=== PATIENT | male | born 1965 | race African-American/Black ===

== ENCOUNTER 2022-03-09 13:55 | Observation (INO) | payer OTHER, SELFPAY ==
[2022-03-09] VITALS (38 sets, daily range): BP systolic 136–192; BP diastolic 83–115; PULSE 57–88; RESP 12–27; TEMP 36.7–37.4; O2SAT 97–100
--- NOTE | ~2022-03-09 | US_ITS ---
EXAMINATION: US carotid duplex BI DATE: 03/10/2022 09:28 INDICATION: Dizziness TECHNIQUE: Grayscale, color Doppler, and pulsed Doppler images of the cervical carotid arteries were obtained. The degree of vessel stenosis is placed in one of the following categories: normal, <50%, 5 0-69%, >=70% but less than near-occlusion, near-occlusion, or total occlusion. Note that percent sten osis relative to normal distal artery lumen diameter is indirectly measured from velocity measurement s as described by Jaquan, et al. Radiology 2003; 229:340-346. Notes: Normal: Peak systolic velocity <125 centimeters/sec and no plaque <50%. Peak systolic velocity <125 ( EDV <40; ICA/CCA PSV ratio <2.0; used these factors only a tandem lesions or low cardiac output or co ntralateral disease) 50-69 %: PSV 125-230 (EDV 40-100; ratio 2-4) >= 70% but less than near occlusion: PSV greater than 230 (EDV > 100; ratio> 4.0) Near Occlusion: PSV that is variable; markedly narrowed lumen Occlusion: Absent flow on color/spectral Doppler and no lumen on hooper scale. COMPARISON: None. FINDINGS: RIGHT: The right common carotid artery (CCA) peak systolic velocity (PSV) is 74 cm/s. The right internal car otid artery (ICA) PSV is 69 cm/s. The right ICA end-diastolic velocity (EDV) is 31 cm/s. The right IC A/CCA PSV ratio is 0.9. The external carotid artery (ECA) PSV is 82 cm/s. There is antegrade flow in the right vertebral artery. LEFT: The left CCA PSV is 85 cm/s. The left ICA PSV is 72 cm/s. The left ICA EDV is 31 cm/s. The left ICA/C CA PSV ratio is 0.8. The ECA PSV is 77 cm/s. There is antegrade flow in the left vertebral artery. IMPRESSION: 1. Less than 50% stenosis in the right internal carotid artery by sonographic criteria. 2. Less than 50% stenosis in the left internal carotid artery by sonographic criteria. Reviewed, dictated and finalized at location A. IMPRESSION: 1. Less than 50% stenosis in the right internal carotid artery by sonographic sean gerardo. 2. Less than 50% stenosis in the left internal carotid artery by sonographic tino moore.
--- NOTE | ~2022-03-09 | CT_ITS ---
EXAMINATION: CT brain wo con DATE: 03/09/2022 14:46 INDICATION: dizziness, hx stroke . TECHNIQUE: Computed tomography (CT) of the head was performed without intravenous contrast. The mA wa s adjusted according to patient size. Iterative reconstruction technique was employed. The dose-lengt h product was 605.33 mGy-cm. COMPARISON: 09/13/2016. FINDINGS: No acute intracranial hemorrhage or extra-axial fluid collection. No hydrocephalus, mass, or herniation. No acute ischemic infarct. Unremarkable dural venous sinus attenuation. No acute osseous abnormality. Trace right mastoid effusion, otherwise the aerated spaces are clear. Left frontal encephalomalacia. Atherosclerotic intracranial calcification. IMPRESSION: No acute intracranial process. Reviewed, dictated and finalized at location K.
--- NOTE | 2022-03-09 14:17 | ED.DIZZY ---
HPI - Dizziness General Chief Complaint: Dizziness <VASU Coyle Last Filed: 03/09/22 18:58> Stated Complaint: dizzy <VASU Coyle Last Filed: 03/09/22 18:58> Time Seen by Provider: 03/09/22 14:00 <VASU Coyle Last Filed: 03/09/22 18:58> History of Present Illness HPI Narrative: Patient is a 56-year-old male with a history of old CVA on blood thinners here for evaluation of dizziness over the past 4 days. Patient states that the dizziness is episodic, and noted when he turns his head. States that it feels like a room spinning sensation. He is also having a posterior headache that he notes at nighttime when he is lying down flat and also has had intermittent chills over the past several days. Denies any neck pain or stiffness, loss of consciousness, chest pain, shortness of breath, sinus congestion or cough. Denies nausea, vomiting, diarrhea. <VASU Coyle Last Filed: 03/09/22 18:58> Related Data Home Medications: Home Medications Medication Instructions Recorded Confirmed atorvastatin 40 mg tablet 40 mg PO DAILY 03/09/22 03/09/22 clopidogrel 75 mg tablet mg 03/09/22 03/09/22 <VASU Coyle Last Filed: 03/09/22 18:58> Allergies/Adverse Reactions: Allergies Allergy/AdvReac Type Severity Reaction Status Date / Time No Known Allergies Allergy Unverified 03/09/22 14:13 <VASU Coyle Last Filed: 03/09/22 18:58> Review of Systems Review of Systems: Gen: Reports chills Eyes: Denies eye pain or visual change ENT: Denies congestion, ear pain Respiratory: Denies shortness of breath or cough CV: Denies chest pain or palpitations GI: Denies abdominal pain nausea, emesis or diarrhea : denies burning, urgency, frequency or hematuria Musculoskeletal: Denies back pain or muscle pain Neuro: Reports dizziness. Denies numbness, tingling, weakness or focal weakness Skin: Denies rash Except as documented, all other systems reviewed and negative <Janie Lopez PA-C - Last Filed: 03/09/22 18:58> Exam Narrative: APPEARANCE: Well appearing, no pain in distress, well-nourished. Head: Normocephalic and atraumatic. EYES: Fatigable, horizontal nystagmus noted with EOMs. PERRLA, conjunctivae clear NOSE: No nasal drainage EARS: cerumen obscuring TMs on left, R TM nl in appearance THROAT: Oropharynx is clear. Mucous membranes are moist. NECK: Supple. No adenopathy, no masses. RESPIRATORY: Airway patent, respirations nonlabored. Clear to auscultation bilaterally, no rales, rhonchi, wheezing. CARDIOVASCULAR: Regular rate and rhythm without murmurs, rubs, or gallops. ABDOMINAL: Normoactive bowel sounds. Soft, nontender, nondistended. No rebound tenderness or guarding. MUSCULOSKELETAL: Extremities are warm and well-perfused. Moves all extremities well. No edema. NEURO: No skew deviation. Cranial nerves II through XII intact. Normal speech. Finger to nose normal. SKIN: Skin is warm and dry. No rashes. PSYCHIATRIC: Normal affect/mood. 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/PA Physician Supervision For this patient encounter, I reviewed the AUTOMOTIVE GENERAL SALES MANAGER or PA documentation, treatment plan, and medical decision making <Rusty Greenwood MD - Last Filed: 03/09/22 20:06> Vital Signs Vital signs: Vital Signs Temperature 98.6 F 03/09/22 13:57 Pulse Rate 70 03/09/22 13:57 Respiratory Rate 16 03/09/22 13:57 Blood Pressure 143/89 H 03/09/22 13:57 Pulse Oximetry 100 03/09/22 13:57 Oxygen Delivery Room Air 03/09/22 13:57 Temperature 99.4 F 03/09/22 14:02 Pulse Rate 75 03/09/22 19:30 Respiratory Rate 22 H 03/09/22 19:30 Blood Pressure 156/98 H 03/09/22 17:58 Pulse Oximetry 99 03/09/22 19:30 Oxygen Delivery Room Air 03/09/22 14:02 <Janie Lopez PA-C - Last Filed: 03/09/22 18:58> Vital Signs Temperatur
[2022-03-09 14:42] LABS: Basophils Percent Auto 0.5 % (0.2-1.2); Eosinophils Absolute Auto 0.2 K/mm3 (0-0.3); Eosinophils Percent Auto 2.4 % (0-4.4); Hematocrit 41.8 % (42.0-52.0); Hemoglobin 14.5 g/dL (14.0-18.0); Immature Granulocyte Absolute 0.03 K/mm3 (0.00-0.031); Immature Granulocyte Percent A 0.5 % (0-0.5); Lymphocytes Absolute Auto 1.01 K/mm3 (0.9-3.2); Lymphocytes Percent Auto 16.3 % (18.3-44.2); Mean Corpuscular HGB Conc 34.7 g/dl (32-36); Mean Corpuscular Hemoglobin 30.9 pg (26-34); Mean Corpuscular Volume 89.1 fl (80-100); Mean Platelet Volume 9.2 fl (7.4-10.4); Monocytes Absolute Auto 0.8 K/mm3 (0.1-0.6); Monocytes Percent Auto 12.9 % (2.6-8.5); Neutrophils Absolute Auto 4.2 K/mm3 (1.3-6.7); Neutrophils Percent Auto 67.4 % (45.5-73.1); Platelet Count Result 236 k/mm3 (150-375); Red Blood Count 4.69 M/mm3 (4.6-6.20); White Blood Count 6.2 K/mm3 (4.5-10.0)
[2022-03-09 14:56] LABS: Alanine Aminotransferase 23 U/L (6-50); Albumin Level 4.2 g/dL (3.5-5.1); Alkaline Phosphatase 104 U/L (38-126); Anion Gap 11 mmol/L (8-16); Aspartate Amino Transferase 30 U/L (17-59); Bilirubin,Total 0.8 mg/dL (0.2-1.3); Blood Urea Nitrogen 9 mg/dL (9-20); Calcium 8.7 mg/dL (8.4-10.2); Carbon Dioxide 26 mmol/L (22-30); Chloride 100 mmol/L (98-107); Estimated CRCL calculation 113 ml/min; Estimated Glomerular Filt Rate > 60; Glucose 161 mg/dL (65-110); Potassium 2.8 mmol/L (3.4-5.0); Sodium 137 mmol/L (137-145)
--- NOTE | 2022-03-09 14:56 | ECG_ITS ---
Measurements Intervals [place] Rate: 64 P: 49 [place]: 145 QRS: 29 QRSD: 117 T: 5 QT: 405 QTc: 419 Interpretive Statements SINUS RHYTHM INTRAVENTRICULAR CONDUCTION DELAY BORDERLINE ST-T WAVE ABNORMALITY- INFERIOR LEADS BASELINE ARTIFACT- I, II, AVR, V1-V5 BORDERLINE ECG Electronically Signed On 03-09-2022 15:12:35 CDT by Omar Rowe D.O.
[2022-03-09 15:15] LABS: Influenza A QL RT-PCR Negative (Negative); Influenza B QL RT-PCR Negative (Negative); SARS-CoV-2 RNA PCR Negative
[2022-03-09] MEDS: KCL 20 MEQ/SW 100 ML 100 ML 50 MEQ IVPB (15:47)
[2022-03-09 15:56] LABS: Magnesium 1.8 mg/dL (1.6-2.3)
[2022-03-09] MEDS: SODIUM CHLORIDE 0.9% IV 500 ML IV CONT (17:03)
[2022-03-09] MEDS: MECLIZINE HCL 25 MG TABLET PO (17:17)
[2022-03-09] MEDS: POTASSIUM CHLORIDE 20 MEQ PACKET (FOR LIQUID) PO (17:31)
--- NOTE | 2022-03-09 19:55 | PM.IMHP ---
H&P: HPI History of Present Illness Date/Time: 03/09/221954 Chief Complaint: Dizziness Narrative: Patient stated that he has been getting dizzy and slight headaches. Patient stated that his headache lasts about 2-3 minutes and goes away. However he did state that his back of his neck and between his shoulder blades did hurt as well. He stated this all started about Tuesday when he started really feel weak and tired. He thought it was from the he is fully rested on Tuesday. Tuesday he felt worse and today he felt the same which made him come in to see someone about his symptoms. Patient stated he has been eating and drinking okay and in fact he stated that he has been drinking a lot of water and taking ibuprofen for the headache. He has not been replacing the electrolytes. 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 He did say the meclizine helped the dizziness and he currently does not have any dizziness at this time. He denies any chest pain, shortness of breath, visual changes, hearing changes, sweats, fevers, chills, syncope, dizziness. He did state that he does get lightheaded at times however it does not really last long. In the ER potassium was noted to be 2.8 patient was replaced. Patient was also given meclizine for dizziness and states that that has really been helping. Patient is being admitted to the hospitalist service under observation Review of Systems Review of Systems: All systems reviewed & are unremarkable except as noted in HPI and below PMFSH Past Medical History Medical History CVA (cerebral vascular accident) Hyperlipidemia Family History Family History (Updated 03/09/22 @ 21:12 by SKYLAR Phillips) Father Heart disease Hypertension Mother Lung cancer Social History Social History (Updated 03/09/22 @ 21:14 by SKYLAR Phillips) Social History: Patient lives at home with his Gifty who will be his surrogate. 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 Gender identity (if verbalized by the patient): Male Sexual Orientation (if Verbalized by the Patient): Straight or Heterosexual Spiritual care concerns: No Agree to blood products: Yes Meds Home Medications and Allergies Home Medications Medication Instructions Recorded Confirmed Type atorvastatin 40 mg tablet 40 mg PO DAILY 03/09/22 03/09/22 History clopidogrel 75 mg tablet 75 mg PO DAILY 03/09/22 03/09/22 History Allergies Allergy/AdvReac Type Severity Reaction Status Date / Time No Known Allergies Allergy Unverified 03/09/22 14:13 Vital Signs Vital Signs - 24 hr 03/09/22 13:57 03/09/22 14:02 03/09/22 15:13 Temperature 98.6 F 99.4 F Pulse Rate 70 74 68 Respiratory Rate 16 27 H 19 Blood Pressure 143/89 H 154/97 H 158/98 H Pulse Oximetry 100 100 97 Oxygen Delivery Room Air Room Air 03/09/22 17:03 03/09/22 17:40 03/09/22 17:55 Temperature Pulse Rate 61 75 87 Respiratory Rate 16 16 Blood Pressure 150/101 H 141/93 H 147/96 H Pulse Oximetry 100 100 Oxygen Delivery 03/09/22 17:55 03/09/22 17:57 Temperature Pulse Rate 88 72 Respiratory Rate Blood Pressure 153/96 H 156/98 H Pulse Oximetry Oxygen Delivery Exam Const: General: cooperative, no acute distress, well developed, alert and awake Nutritional Appearance: well nourished Orientation/consciousness: patient oriented x3 Limitations: no limitations HENMT: Ramona
--- NOTE | 2022-03-09 21:15 | ADMGEN ---
This patient, Familia Newman, was admitted to [facility] Surg Room 312-01. Patient/family oriented to hospital policies and general routines including ID bracelet, bed and alarms, visiting hours, pain management, procedures, bathroom and other care routines, personal items, smoking policy, room service/diet, and visiting hours. Information on how to activate the Rapid Response Team has been discussed. Patient/Family are encouraged to report perceived risks to care and to ask questions if they do not understand what they are told or what they should do.
[2022-03-09 21:42] LABS: Potassium 2.9 mmol/L (3.4-5.0)
[2022-03-10] VITALS: PULSE 69
[2022-03-10 04:00] VITALS: PULSE 71
[2022-03-10] MEDS: ACETAMINOPHEN 500 MG TABLET 1000 MG PO (04:26)
[2022-03-10 05:59] LABS: Basophils Percent Auto 0.3 % (0.2-1.2); Eosinophils Percent Auto 0.2 % (0-4.4); Hematocrit 37.6 % (42.0-52.0); Hemoglobin 13.2 g/dL (14.0-18.0); Immature Granulocyte Absolute 0.02 K/mm3 (0.00-0.031); Immature Granulocyte Percent A 0.3 % (0-0.5); Lymphocytes Absolute Auto 1.76 K/mm3 (0.9-3.2); Lymphocytes Percent Auto 30.4 % (18.3-44.2); Mean Corpuscular HGB Conc 35.1 g/dl (32-36); Mean Corpuscular Hemoglobin 31.2 pg (26-34); Mean Corpuscular Volume 88.9 fl (80-100); Mean Platelet Volume 9.3 fl (7.4-10.4); Monocytes Absolute Auto 0.9 K/mm3 (0.1-0.6); Neutrophils Absolute Auto 3.1 K/mm3 (1.3-6.7); Neutrophils Percent Auto 53.8 % (45.5-73.1); Platelet Count Result 231 k/mm3 (150-375); Red Blood Count 4.23 M/mm3 (4.6-6.20); Red Cell Distribution Width 13.1 % (11.5-14.5); White Blood Count 5.8 K/mm3 (4.5-10.0)
[2022-03-10 06:00] VITALS: BP 134/81; PULSE 66; RESP 16; TEMP 36.1; O2SAT 98
[2022-03-10 06:19] LABS: Alanine Aminotransferase 25 U/L (6-50); Albumin Level 3.4 g/dL (3.5-5.1); Alkaline Phosphatase 81 U/L (38-126); Anion Gap 9 mmol/L (8-16); Aspartate Amino Transferase 34 U/L (17-59); Bilirubin,Total 0.5 mg/dL (0.2-1.3); Blood Urea Nitrogen 8 mg/dL (9-20); Calcium 8.7 mg/dL (8.4-10.2); Carbon Dioxide 25 mmol/L (22-30); Chloride 100 mmol/L (98-107); Estimated CRCL calculation 113 ml/min; Estimated Glomerular Filt Rate > 60; Glucose 150 mg/dL (65-110); Magnesium 1.8 mg/dL (1.6-2.3); Potassium 2.7 mmol/L (3.4-5.0); Sodium 134 mmol/L (137-145)
[2022-03-10 08:30] VITALS: PULSE 77
[2022-03-10] MEDS: CLOPIDOGREL BISULFATE 75 MG TABLET PO (08:46)
[2022-03-10] MEDS: ATORVASTATIN 40 MG TABLET PO (08:46)
[2022-03-10] MEDS: POTASSIUM CHLORIDE INJ 40 MEQ in SODIUM CHLORIDE 0.9% IV 500 ML 130 MEQ IVPB (08:47)
[2022-03-10] MEDS: POTASSIUM CHLORIDE 20 MEQ TABLET 40 MEQ PO (08:47)
[2022-03-10 12:00] VITALS: PULSE 76
--- NOTE | 2022-03-10 13:30 | PM.DS ---
DS: Admitting Diagnosis Discharge Date 03/10/22 13:30 Admitting Diagnosis Hypokalemia/BPPV DS: Discharge Diagnosis Discharge Diagnosis (1) Benign paroxysmal positional vertigo: Code(s): H81.10 - Benign paroxysmal vertigo, unspecified ear Status: Acute Assessment and Plan: Patient reports room spinning upon arrival Carotid Dopplers <50% stenosis bilaterally Head CT shows no intracranial process Meclizine ordered PT and OT Will have patient follow up outpatient with ENT (2) Hypokalemia: Code(s): E87.6 - Hypokalemia Status: Acute Assessment and Plan: Potassium upon arrival was 2.7 replacement given PO and IV 40meg Awaiting recheck Supplement as indicated Trend labs (3) Hyperlipidemia: Code(s): E78.5 - Hyperlipidemia, unspecified Status: Acute Assessment and Plan: Continue home atorvastatin Plan Case was reviewed with Dr. Benitez, who agreed with plan and recommended to give the patient 60 meq PO and allow patient to be DC'd with follow up DS: Summary Hospital Course Hospital Course: patient is a 56-year-old male with a past medical history of CVA and hyperlipidemia who presented the ED with complaints of dizziness. 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 Patient stated that as he has been sweating he has been drinking a lot more water. Upon arrival to the ED patient was noted to have a potassium of 2.8. Patient was given IV and p.o. 20 meq recheck this morning did show the patient was at 2.7. Patient was given p.o. 40 mg and IV 40 mg of potassium. Patient feels fine and is denying any dizziness, nausea, vomiting, diarrhea, constipation, weakness, fatigue, chest pain, shortness of breath. He has been up moving around, and says that he feels great. He is ready to go. Educated that patient about the next steps with getting his labs checked in 3 day and to follow up with primary care. Repeat potassium came back at 3.0. 60 meq has been replaced. Educated about eating a banana. He denies any further complaints and is able to be discharged at this time. Time spent discussing smoking cessation with patient: 3 to 10 minutes Status at Discharge Functional status at discharge: independent ambulation Overall status at discharge: patient is progressing back to baseline Time Spent with Patient Time attestation: Total time spent providing and/or coordinating discharge services: 32 minutes Time spent: Greater than 30 minutes Specific discharge activities: Diagnostic testing, chart review, developing a treatment plan, education, care coordination documentation, physical exam, result review Exam Const: General: cooperative, healthy appearing, no acute distress, well developed, alert and awake Nutritional Appearance: well nourished Orientation/consciousness: patient oriented x3 Limitations: no limitations HENMT: Head: normal to inspection Ears: hearing grossly normal bilaterally General nose exam: Normal external nose present Mouth: Yes Normal oral and palatal mucosa present, Yes lip normal and Yes tongue normal Teeth and gingiva: abnormal tooth and associated gingiva and poor dentition Eyes: General: appearance normal, both eyes and all related structures Neck: Neck: normal visual inspection, full ROM, trachea midline and supple Chest: Chest palpation & inspection: normal inspection of the chest Resp: Effort & Inspection: normal respiratory effort and able to speak in complete sentences Auscultation: clear to auscultation bilaterally Cardio: Jugular venous distension: no JVD Rate: regular rate Rhythm: regular rhythm Heart sounds: S1 normal heart sound present and S2 normal heart sound present Peripheral pulses: Peripheral pulses 2+ throughout GI: Inspection: normal to inspection Auscultation: normal bowel sounds Skin: General skin exam: normal color and n
[2022-03-10] MEDS: POTASSIUM CHLORIDE 20 MEQ TABLET 60 MEQ PO (14:41)
--- NOTE | 2022-03-10 15:29 | PCPTNOTE ---
Attempted PT evaluation, per patient symptoms have resolved and he has been independent in room. Hospitalist contacted and agreed to DC or PT orders.
== END 2022-03-10 15:29 | disposition home or self-care (01) ==
LOC: ANHED 15:24 → ANH3MEDSUR 18:47
PROVIDERS: Physician Assistant; Admitting Provider Family Medicine; Emergency Provider Emergency Medicine; PCP Internal Medicine Gastroenterology; Visit Provider Nurse Practitioner
DX: H81.10 Benign paroxysmal vertigo, unspecified ear (principal); E87.6 Hypokalemia; E78.5 Hyperlipidemia, unspecified; Z79.02 Long term (current) use of antithrombotics/antiplatelets; Z20.822 Contact with and (suspected) exposure to COVID-19; Z86.73 Personal history of transient ischemic attack (TIA), and cerebral infarction without residual deficits; F12.90 Cannabis use, unspecified, uncomplicated
CPT/HCPCS: 36415; 70450; 80053; 83735; 84100; 84132; 85025; 87502; 93005; 93880; 96365; 96366; 99285; A9270; C9803; G0378; G0379; J3480; J7040; U0003; U0005

== ENCOUNTER 2022-03-13 09:57 | Outpatient (CLI) | payer OTHER, SELFPAY ==
[2022-03-13 10:22] LABS: Alanine Aminotransferase 39 U/L (6-50); Albumin Level 3.9 g/dL (3.5-5.1); Alkaline Phosphatase 89 U/L (38-126); Anion Gap 8 mmol/L (8-16); Aspartate Amino Transferase 41 U/L (17-59); Bilirubin,Total 0.4 mg/dL (0.2-1.3); Blood Urea Nitrogen 11 mg/dL (9-20); Calcium 9.1 mg/dL (8.4-10.2); Carbon Dioxide 29 mmol/L (22-30); Chloride 103 mmol/L (98-107); Estimated Glomerular Filt Rate > 60; Glucose 108 mg/dL (65-110); Potassium 3.6 mmol/L (3.4-5.0); Sodium 140 mmol/L (137-145)
== END 2022-03-13 09:58 | disposition home or self-care (01) ==
LOC: ANHLAB 09:58
PROVIDERS: PCP Internal Medicine Gastroenterology; Visit Provider Nurse Practitioner
DX: E87.6 Hypokalemia (principal)
CPT/HCPCS: 36415; 80053

== ENCOUNTER 2023-10-15 09:16 | Emergency (ER) | payer OTHER, SELFPAY ==
--- NOTE | ~2023-10-15 | XR_ITS ---
EXAMINATION: XR shoulder LT min 2V DATE: 10/15/2023 09:51 INDICATION: Left shoulder pain. TECHNIQUE: 4 views of left shoulder were obtained. COMPARISON: None. FINDINGS: Bone alignment is normal. No fracture. Glenohumeral joint is normal. There is moderate acro mioclavicular joint osteoarthritis. An electronic implant overlies left chest. IMPRESSION: 1. Moderate acromioclavicular joint osteoarthritis. Reviewed, dictated and finalized at location A. ND MATE
[2023-10-15 09:17] VITALS: BP 142/82; PULSE 79; RESP 17; TEMP 36.7; O2SAT 100
--- NOTE | 2023-10-15 09:28 | ED.UPPEXIN ---
HPI - Extremity Injury (Upper) General Chief Complaint: Extremity Injury, Upper Stated Complaint: left shoulder Time Seen by Provider: 10/15/23 09:21 History of Present Illness HPI narrative: 57 year old male presents to the emergency department for left shoulder pain for the past few days. 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 States he has developed left shoulder pain that is worse with movement. He took ibuprofen last night without improvement. He denies numbness or tingling, radiating pain, chest pain or shortness of breath, back pain, neck pain. Related Data Home Medications Medication Instructions Recorded Confirmed atorvastatin 40 mg tablet 40 mg PO DAILY 03/09/22 03/09/22 clopidogrel 75 mg tablet 75 mg PO DAILY 03/09/22 03/09/22 Allergies Allergy/AdvReac Type Severity Reaction Status Date / Time No Known Allergies Allergy Unverified 03/09/22 14:13 Review of Systems Review of Systems: CONSTITUTIONAL: Denies fever, chills, or sweats. EYES: Denies visual changes, redness, or discharge. ENT: Denies rhinorrhea, congestion, sore throat, or otalgia. CARDIOVASCULAR: Denies chest pain, palpitations, or edema. RESPIRATORY: Denies cough or dyspnea. GASTROINTESTINAL: Denies abdominal pain, nausea, vomiting, or diarrhea. GENITOURINARY: Denies dysuria or hematuria. SKIN: Denies rash or itching. MUSCULOSKELETAL: See HPI NEUROLOGIC: Denies headache, numbness, or weakness. PSYCHIATRIC: Denies anxiety or depression. [facility] Past Medical History Medical History CVA (cerebral vascular accident) Hyperlipidemia Family History Family History Father Heart disease Hypertension Mother Lung cancer Social History Social History Social History: Patient lives at home with his Gifty who will be his surrogate. 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 Patient resting comfortably in exam bed. He is pleasant and conversational. HEAD: Normocephalic, atraumatic. NECK: Supple. No midline cervical spinous tenderness, step-offs or deformities. CHEST: Clear to auscultation. No respiratory distress. HEART: Regular rate and rhythm. No murmur heard. Normal peripheral pulses. ABDOMEN: Soft, nontender, nondistended, normal active bowel sounds. EXTREMITIES: L shoulder with generalized tenderness to the GH joint and to the trapezius. No warmth or erythema over the shoulder. Limited active anterior flexion, abduction and internal rotation secondary to pain. Unable to perform empty can test, neer test and lift-off test secondary to pain. Full passive range of motion. Sensation intact throughout. Elbow flexion, extension tax compliance representative strength 5/5. Radial pulse 2 +. SKIN: Warm, dry, no rash. NEURO: No focal deficits. Alert and oriented x3 Course Vital Signs Vital signs: Vital Signs Temperature 98.0 F 10/15/23 09:17 Pulse Rate 79 10/15/23 09:17 Respiratory Rate 17 10/15/23 09:17 Blood Pressure 142/82 H 10/15/23
[2023-10-15] MEDS: LIDOCAINE 5% PATCH 1 PATCH TRANSDERM (09:42)
[2023-10-15] MEDS: CYCLOBENZAPRINE HCL 10 MG TABLET PO (09:42)
[2023-10-15] MEDS: KETOROLAC 30 MG/ML VIAL (*BKC) IV PUSH (09:50)
[2023-10-15] MEDS: KETOROLAC 30 MG/ML VIAL (*BKC) IM (09:51)
== END 2023-10-15 10:28 | disposition home or self-care (01) ==
PROVIDERS: Emergency Provider Physician Assistant; PCP Internal Medicine Gastroenterology
DX: S46.912A Strain of unspecified muscle, fascia and tendon at shoulder and upper arm level, left arm, initial encounter (principal); E78.5 Hyperlipidemia, unspecified; Z86.73 Personal history of transient ischemic attack (TIA), and cerebral infarction without residual deficits; X50.0XXA Overexertion from strenuous movement or load, initial encounter
CPT/HCPCS: 73030; 96372; 96374; 99284; A4565; A9270; J1885

== ENCOUNTER 2025-01-23 07:59 | Emergency (ER) | payer OTHER, SELFPAY ==
[2025-01-23] VITALS (11 sets, daily range): BP systolic 115–144; BP diastolic 75–97; PULSE 66–90; RESP 15–24; TEMP 36.6; O2SAT 95–100
--- NOTE | ~2025-01-23 | XR_ITS ---
EXAMINATION: XR chest 2V 01/23/2025 08:57 INDICATION: Syncope PROCEDURE: 2 view chest COMPARISON: 09/13/2016 FINDINGS: The lungs are clear. The cardiomediastinal silhouette is within normal limits. There are no pleural effusions. There is no pneumothorax suspected. IMPRESSION: 1: NO ACUTE CARDIOPULMONARY DISEASE. Reviewed, dictated and finalized at location []
--- NOTE | ~2025-01-23 | CT_ITS ---
EXAMINATION: CT brain wo con DATE: 01/23/2025 08:45 INDICATION: Possible seizure TECHNIQUE: Computed tomography (CT) of the head was performed without intravenous contrast. Sagittal and coronal reconstructions were performed. The mA was adjusted according to patient size. Iterative reconstruction technique was employed. The dose-length product was 605.33 mGy-cm. COMPARISON: head CT dated 03/09/2022 FINDINGS: Again seen is a small to moderate-sized region of encephalomalacia consistent with chronic infarct in the left frontal lobe. No acute intracranial hemorrhage, acute infarction or abnormal extra axial fl uid collection. Ventricles are normal and symmetric. No mass/mass effect. Large mucous retention cyst in the left maxillary sinus. The orbits and mastoid air cells are normal. IMPRESSION: 1. Chronic left frontal lobe infarct. No acute intracranial process. Reviewed, dictated and finalized at location A.
--- NOTE | 2025-01-23 08:06 | ECG_ITS ---
Test Date: 2025-01-23 08:27:28 Measurements Intervals [place] Rate: 71 P: 64 [place]: 143 QRS: 20 QRSD: 101 T: 46 QT: 423 QTc: 460 Interpretive Statements SINUS RHYTHM INCOMPLETE RIGHT BUNDLE BRANCH BLOCK BASELINE ARTIFACT- III, AVF BORDERLINE ECG No previous ECG available for comparison Electronically Signed On 01-23-2025 08:29:09 CDT by Omar Rowe D.O.
--- OUTSIDE RECORDS SUMMARY | 2025-01-23 08:08 | XMS_ITS | Clinical Summary ---
Author Organization [facility] Address [address] [place] [address] Care Team Providers Care Hoe Runner Name Role Phone Kay Alfred MD Unavailable [phone] Kaycee Trimble MD Primary Care Provider [phone] Source Comments [facility],non-owned Affiliates and Associated Physician Practices is amultiple site organization consisting of ambulatory clinics and hospital sitesin [place], [place], [place] and [place]. This disclosure is being madepursuant to the Care Everywhere program and may not contain all information available regarding this patient. Last updated 18.[facility] [employer] Allergies No known active allergies Medications * Be aware that medications may not be up to date on this document. Alwaysverify current medications with the patient. fluticasone propionate (FLONASE) 50 MCG/ACT nasal spray SHAKE LQ AND U 2 SPRAYS IEN QD 1 9 Active HYDROcodone-soila taminophen (NORCO) 5-325 MG tablet Take 1 tablet by mouth every 6 hours as needed for Pain 25 tablet 9 Active Additional Information Patient not taking.Reported on 06/02/2022 tadalafil (Cialis) 20 MG tablet Cialis 20 mg tablet TAKE 1 TABLET BY MOUTH EVERY DAY Active hydrOXYzine hcl (ATARAX) 25 MG tablet hydroxyzine HCl 25 mg tablet Active oxybutynin (DITROPAN) 5 MG tablet oxybutynin chloride 5 mg tablet Active predniSONE (DELTASONE) 10 MG tablet prednisone 10 mg tablet Active tamsulosin (FLOMAX) 0.4 MG capsule tamsulosin 0.4 mg capsule Active vitamin D, ergocalciferol, (DRISDOL) 1.25 MG (80461 UT) capsule 0 Active atorvastatin (LIPITOR) 40 MG tablet TAKE 1 TABLET BY MOUTH EVERY NIGHT 90 tablet 3 0 Active clopidogrel (PLAVIX) 75 MG tablet TAKE 1 TABLET BY MOUTH DAILY 90 tablet 3 0 Active Active Problems Problem Noted Date Diagnosed Date Radiculopathy of cervical region 09/15/2017 Aphasia 09/17/2016 Cerebral infarction 09/16/2016 Overview (11/14/2017): Cryptogenic. 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 Gender Identity Not on file Sexual Orientation Not on file Last Filed Vital Signs Vital Sign Reading Time Taken Comments Blood Pressure 155/93 06/15/2024 12:38 PM CDT Pulse 68 06/15/2024 12:38 PM CDT Temperature 36.8 C (98.2 F) 06/15/2024 12:38 PM CDT Respiratory Rate 18 06/15/2023 1:23 PM CDT Oxygen Saturation 98% 06/15/2024 12:38 PM CDT Inhaled Oxygen Concentration - - Weight 101.6 kg (224 lb) 06/15/2024 12:38 PM CDT Height 182.9 cm (6') 06/15/2024 12:38 PM CDT Body Mass Index 30.38 06/15/2024 12:38 PM CDT Plan of Treatment Upcoming Encounters Date Type Department Care Team (Late st Contact Info) Description 06/14/2025 1:00 PM CDT Procedure visit [facility] - Urology [address] [place] [address] Marlon Byrd MD [address] [place] [address] Health Maintenance Due Date Last Done Comments COLON MONITORING 1966 COLONOSCOPY - COLON CA SCREENING 1966 CT COLONOGRAPHY - COLON CA SCREENING 1966 FIT - COLON CA SCREENING 1966 FLEX SIG - COLON CA SCREENING 1966 HEPATITIS C SCREENING 10/23/1984 DTAP/TDAP/TD VACCINES (1 - Tdap) 1985 HEPATITIS B VACCINE (1 of 3 - 19+ 3-dose series) 1985 PNEUMOCOCCAL VACCINE 50+ (1 of 1 - PCV) 2016 ZOSTER VACCINE (1 of 2) 2016 COVID-19 VACCINE ( - 2023-2 5 season) 2024 DEPRESSION SCREENING 08/15/2024 INFLUENZA VACCINE (Season Ended) 2025 COLOGUARD (AGES 45-75) - COL ON CA SCREENING 05/14/2027 05/14/2024 Colorectal Cancer Screening 05/14/2027 HIV SCREENING Completed 09/16/2016 HIB VACCINE Aged Out No longer eligi ble based on patient's age to complete this topic HPV VACCINE Aged Out No longer eligi ble based on patient's age to complete this topic MENINGOCOCCAL (Group B) VACC INE SHARED DECISION-MAKING Aged Out No longer eligibl e based on patient's age to complete this topic MENINGOCOCCAL GROUPS A/C/Y/W VACCINE Aged Out No longer eligible b ased on patient's age to complete this topic Medical Devices Implanted Type Area Manufacturing Quality Technician Device Identifier Shelf Expiration Date Model / Serial / Lot Stent Uret 6fr 28cm Pgtl Crv Tpr Tip Implanted:Qty: 1 on 08/29/2018 by Marlon Byrd MD at [facility] Right: [employer]reter Black[employer] Scimed 02/26/2021 [id number] / / [id number] Procedures Procedure Name Priority Date/Time Associated Diagnosis Comments HIV-1 HIV-2 ANTIGEN/ANTIBODY Routine 09/16/2016 2:50 PM MULTI PUNCH OPERATOR from Last 3 Months or Most Recently Relevant to Health Maintenance Results * HIV-1 HIV-2 ANTIGEN/ANTIBODY (09/16/2016 2:50 PM MULTI PUNCH OPERATOR) HIV Antigen/Antibod y 1 & 2 Non-reacti ve Non-react miriam [facility] Comment: Neither HIV-1 p24 Antigen nor HIV-1/HIV-2 Antibodies are detected. Blood specimen (specimen) BLOOD SPECIMEN / Unknown 09/16/2016 2:50 PM MULTI PUNCH OPERATOR 09/16/2016 3:14 PM MULTI PUNCH OPERATOR us Dc Snow MD LAB - HEMATOLOGY ORDERABLES Marija richard Result [address] [phone] from Last 3 Months or Most Recently Relevant to Health Maintenance Insurance [facility] Serious [place] [facility] Advance Directives * Full Code (Latest Code Status on File) Date Activated Date Inactivated Comments 08/29/2018 11:45 AM 08/29/2018 7:14 PM Care Teams Hoe Runner Relationship Specialty Start Date End Date Kaycee Trimble MD [address] [place] [address] PCP - General 01/29/19 Kay Alfred MD Neurologist Neurology 12/24/17
--- OUTSIDE RECORDS SUMMARY | 2025-01-23 08:08 | XMS_ITS | Data Portability ---
Author Organization [place] [facility] [employer], Main Office Address [address] [place] [address] Assessment Encounter Date Assessment Date Assessment LastModified by Organization Details LastModified Time 11/15/2023 11/15/2023 48-year-old patient presents today with left shoulder pain after moving boxes 3 weeks ago. He states he was fine afterwards but he woke up in the middle night in extreme pain. The next day he was still extremely painful so he presented to the emergency room where x-rays were taken. He was told he did not have a fracture in given lidocaine patches and a muscle relaxant. Today he states the shoulder is feeling better but he is still experiencing pain with certain movements and having pain at night that keeps him up. Review of systems per patient questionnaire Imaging: X-rays reviewed show no acute bony abnormality, no fracture. Preserved joint spaces throughout. Physical exam: Pain with palpitation around posterior shoulder. Range of motion 130/40/back pocket. 5/5 rotator cuff strength. Positive jobes, neer, esteban. Sensation intact. We will start with a course of physical therapy to help stretch and strengthen his shoulder. He states he is unable to take anti-inflammator y so he can try Tylenol and topical creams. We discussed the risks and benefits of a cortisone injection as he is having pain that keeps him up at night. He elected to proceed with the injection today. We will see him back in 4-6 weeks to check his progress. [email or web address] Not available 11/15/2023 20:51:08 Plan of Treatment Reminders Order Date Submit Date Provider Last Modified By Organization Details Last Modified Time Details Appointments None recorded. Lab None recorded. Referral physical therapist referral - Please contact pt to schedule L shoulder. Thanks 2023 024 [facility], [address], [place], [address], 4 11:04:31 Procedures injection/a spiration joint/bursa (PROC) - in office procedure, administere d by provider 2023 024 [email or web address] In-Office Order, Internal Use Only DO Not Attach Compendium DO Not Attach Compendium, Do Not Delete/merge, [id number] 10:56:08 Surgeries None recorded. Imaging None recorded. Medication Orders Kenalog 10 mg/mL suspension for injection 2023 024 [id number], [address] , [place], [place], [phone], 17:49:53 Marcaine 0.5 % (5 mg/mL) injection solution [address] [id number], [address] [facility], [place], [place], [phone], 17:49:53 Patient TargetsNo targets recorded. Patient InstructionsNo instructions recorded. Reason for Referral Physical Therapist Referral for Pain of left shoulder joint L shoulder Please contact pt to schedule L shoulder. Thanks Referring Physician: Elma Ballesteros, Orthopedic Surgery, Encounter Date: 11/15/2023 Results Created Date Observation Date Name Description Value Unit Range Abnormal Flag Note LastModifiedBy Organization Detail LastModifiedTime 11/16/19 24 10/15/2023 XR, shoul hadley No observ ation record ed. [email or web address] Not Available 2023 10:55:22 11/16/19 24 10/15/2023 XR, shoul hadley, 2 or more view No observ ation record ed. [email or web address] Not Available 10/2023 15:40:42 Result Notes None recorded. 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 Procedures Surgical History Date Name Laterality Status Provider Name and Address Organization Details Recorded Time 4 Ortho - Cortisone Injection completed Elma Ballesteros, FAITH [address] [facility] [facility] [address], [place], [address], [facility] [employer] 11/15/2023 20:51:54 Imaging Results None recorded. Procedure Notes None recorded. Medical Equipment None Reported. Medications Name Sig Start Date Stop Date Status Note LastModified by Organization Details LastModified Time cyclobenzap rine 10 mg tablet TAKE 1 TABLET BY MOUTH THREE TIMES DAILY NEEDED FOR MUSCLE SPASM 11/14 completed Not Available Not Available Not Available atorvastati n 40 mg tablet TAKE 1 TABLET BY MOUTH EVERY NIGHT active Not Available Not Available No t Available prednisone 20 mg tablet TAKE 1 TABLET BY MOUTH DAILY 11/14 completed Not Available Not Available Not Available clopidogrel 75 mg tablet TAKE 1 TABLET BY MOUTH DAILY active Not Available Not Available No t Available Marcaine 0.5 % (5 mg/mL) injection solution Take 4 mL by injection route. 2023 active Not Available Not Available Not Avai lable Kenalog 10 mg/mL suspension for injection Take 1 mL by injection route. 2023 active [facility]: 0003- [phone]- [phone] Not Available Not Available Not Available lidocaine 5 % topical patch APPLY 1 PATCH TOPICALLY TO LEFT SHOULDER DAILY. MAY WEAR UP TO 12 HOURS 11/14 completed Not Available Not Available Not Available alcohol swabs USE ONCE DAILY DIRECTED 11/14 completed Not Available Not Available Not Available ergocalcife rol (vitamin D2) 1,250 mcg (50,000 unit) capsule TAKE 1 CAPSULE BY MOUTH EVERY WEEK 11/14 completed Not Available Not Available Not Available azithromyci n 500 mg tablet 10/27 completed Not Available Not Available Not Available tadalafil 20 mg tablet Take 1 TABLET BY MOUTH 1 HOUR PRIOR TO SEXUAL ACTIVITY DIRECTED, NOT TO EXCEED 1 IN 24 HOURS. active Not Available Not Available No t Available OneTouch Verio test strips TEST ONCE DAILY DIRECTED 11/14 completed Not Available Not Available Not Available OneTouch Delica Plus Lancet 33 gauge USE ONCE DAILY DIRECTED 11/14 completed Not Available Not Available Not Available Vitals Date Recorded Body mass index (BMI) Body height Heart rate Body weight Systolic blood pressure Diastolic blood pressure Provider Name and Address Organization Details Last Updated DateTime 1 32 kg/m2 182.88 cm 108 /min 313040. 8 g 120 mm[Hg] 100 mm[Hg] Not Available [employer] 3 02:28:56 Date Recorded Body height Body mass index (BMI) Body weight Provider Name and Address Organization Details Last Updated DateTime 11/15/2023 182.88 cm 30.5 kg/m2 830741.28 g LORRAINE [place] [employer] 11/15/2023 10:30:22 Social History None recorded. Functional Status None recorded. Mental Status None recorded. Family History Relationship Description Onset Age of this Age Resolved Age Notes LastModified by Organization Details LastModified Time Father Heart disease Not available 2023 10:31:31 Mother Family history of malignant neoplasm [email or web address] Not available 2023 10:31:39 Medical History Condition Response CANCER: SPECIFY Y Past Encounters Encounter ID Performer Location Encounter Start Date Encounter Closed Date Diagnosis/Indication Diagnosis SNOMED-CT Code Diagnosis ICD10 Code Diagnosis Note [id number] [facility] [place] [address] [place] [address] 10/27/2020 00:00:00 2020 13:08:01 [id number] Azam Junior MD [facility] [place] [address] [place] [address] 11/15/2023 10:14:29 11/15/2023 10:58:34 Pain of left shoulder joint [id number] 4962290 M25.512 Health Concerns Section Related Observation LastModified by Organization Detai ls LastModified Time None Recorded Concern Status LastModified by Organization Details LastModified Time None Recorded Advance Directives Directive None Recorded Payers Encounter Date Sequence Insurance Name Policy Number Policy Galdamez Covered Member ID Galdamez Member ID Guarantor Name 11/15/2023 1 [facility] (MEDICAID HMO) [id number] Familia Gamez [id number] Familia Gamez
--- OUTSIDE RECORDS SUMMARY | 2025-01-23 08:08 | XMS_ITS | Encounter Summary ---
Author Organization [facility] Address [address] [place] [address] Care Team Providers Care Billiard Player Name Role Phone Kay Alfred MD Unavailable [facility] Primary Care Provider Kaycee Trimble MD Primary Care Provider Adry Quinn APRN-SYRUP MIXER Unavailable [phone] Encounter Details Date Type Department Care Team (Late st Contact Info) Description 08/30/2018 Telephone [facility] [address] [place] [address] Marlon Byrd MD [address] [place] [id number] Social History Tobacco Use Types Packs/Day Years Used Date Smoking Tobacco: Former Cigarettes 0.5 10 Smokeless Tobacco: Never Comments:quit 20 years ago Alcohol Use Standard Drinks/Week Comments Yes 6 (1 standard drink = 0.6 oz pur e alcohol) shot evry now and then Sex and Gender Information Value Date Recorded Sex Assigned at Not on file 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 Given #5 tabs yesterday. 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 SEWER documented in this encounter Plan of Treatment Upcoming Encounters Date Type Department Care Team (Late st Contact Info) Description 06/14/2025 1:00 PM CDT Procedure visit [facility] - Urology [address] [place] [address] Marlon Byrd MD [address] [place] [address] documented as of this encounter Visit Diagnoses Not on filedocumented in this encounter Care Teams Billiard Player Relationship Specialty Start Date End Date [facility] [address] [place] [address] PCP - General 03/16/18 01/28/19 Kaycee Trimble MD [address] [place] [phone] PCP - General 01/29/19 Adry Quinn APRN-SYRUP MIXER [address] [place] [phone] PCP - Attributed-Lindsay Medicaid [facility] 04/15/21 01/26/23 Kay Alfred MD Neurologist Neurology 12/24/17 documented as of this encounter
--- OUTSIDE RECORDS SUMMARY | 2025-01-23 08:08 | XMS_ITS | Data Portability ---
Author Organization [place] Address [address] [place] [address] Care Team Providers Care Digital Strategy Specialist Name Role Phone KAYCEE ASCENCIO Primary Care Provider Assessment No assessment recorded. Plan of Treatment Reminders Order Date Submit Date Provider Last Modified By Organization Details Last Modified Time Details Appointments ANY 15 2024 10:00A M Kaycee Ascencio MD Not available Not available Not available Lab HbA1c (hemoglob in A1c), blood 2024 025 [facility], [address] [facility] [address], [address], [place], [address], 10/25/2024 13:14:37 lipid panel, serum 2024 025 [facility], [address] [facility], [address], [place], [address], 10/25/2024 13:14:33 CMP, serum or plasma 2024 025 [facility], [address] [facility], [address], [place], [address], 10/25/2024 13:14:35 microalbu min/creat inine, mass ratio, urine 2024 025 [facility], [address] [facility], [address], [place], [address], 10/25/2024 13:14:31 magnesium , serum or plasma 2024 025 [facility], [address], [address], [place], [address], 10/25/2024 13:14:39 phosphoru s, serum or plasma 2024 025 [facility], [address], [address], [place], [address], 10/25/2024 13:14:36 TSH + free T4, serum 2024 025 [facility], [address], [address], [place], [address], 10/25/2024 13:14:32 HbA1c (hemoglob in A1c), blood 2023 024 [place] [id number] In-Office Order, Internal Use Only DO Not Attach Compendium DO Not Attach Compendium, Do Not Delete/merge, [id number] 05/03/2024 10:39:01 noninvasi ve colorecta l cancer DNA + occult blood screening , QL, stool 2023 024 [facility] (Cologuard Orders Only), [address], [address], [place], [address], 05/18/2024 05:00:58 CMP, serum or plasma 2023 024 [facility], [address], [address], [place], [address], 11/04/2023 08:24:21 lipid panel, serum 2023 024 [facility], [address], [address], [place], [address], 11/04/2023 08:24:21 CBC 2023 024 [facility], [address], [address], [place], [address], 11/04/2023 08:24:23 HbA1c (hemoglob in A1c), blood 2023 024 [facility], [address], [address], [place], [address], 11/04/2023 08:24:22 PSA, total, serum or plasma 2022 023 [facility], [address], [address], [place], [address], 12/23/2022 10:15:09 vitamin D, 25-hydrox y, total, serum 2022 023 [facility], [address], [address], [place], [address], 12/23/2022 10:15:10 CMP, serum or plasma 2022 023 [facility], [address], [address], [place], [address], 12/23/2022 06:17:05 lipid panel, serum 2022 023 [facility] [address], [address], [place], [address], 12/23/2022 06:17:05 HbA1c (hemoglob in A1c), blood 2022 023 [facility], [address], [address], [place], [address], 12/23/2022 10:15:09 Referral orthopedi c surgeon referral 2023 024 [facility], [address] [place] [address] [place], [address], 12/20/2023 17:05:51 Procedures None recorded. Surgeries None recorded. Imaging None recorded. Medication Orders clopidogr el 75 mg tablet 2023 024 [facility], [address], [place], [place], [id number], 05/03/2024 10:39:14 atorvasta tin 40 mg tablet 2023 024 [facility], [address], [place], [place], [id number], 05/03/2024 10:39:15 lidocaine 5 % topical patch 2023 024 [facility]75262, [address], [place], [place], [id number], 11/03/2023 12:50:15 alcohol swabs 2022 [facility]23 [facility], [address], [place], [place], [phone], 11/03/2023 11:57:48 Patient TargetsNo targets recorded. Patient Instructions Encounter Date Encounter Id Patient Instructions Last Modified By Organization Details Last Modified Time 12/06/2022 [id number] allergies: care instructions [email or web address] Not available 12/06/2022 18:10:19 managing your allergies: care instructions [email or web address] Not available 12/06/2022 18:10:19 A healthy lifestyle: care instructions [email or web address] Not available 12/06/2022 18:10:19 learning about type 2 diabetes [email or web address] Not available 12/06/2022 18:10:19 type 2 diabetes: care instructions [email or web address] Not available 12/06/2022 18:10:19 06/07/2023 [id number] learning about type 2 diabetes [email or web address] Not available 06/07/2023 12:58:15 11/03/2023 [id number] A healthy lifestyle: care instructions [email or web address] Not available 11/03/2023 12:48:53 10/24/2024 [id number] learning about type 2 diabetes [email or web address] Not available 10/24/2024 12:08:54 type 2 diabetes: care instructions Not available 10/24/2024 12:08:54 hiccups: care instructions [email or web address] Not available 10/24/2024 12:08:54 Reason for Referral Orthopedic Surgeon Referral for Disorder of shoulder Referring Physician: Kaycee Ascencio, Internal Medicine, Encounter Date: 11/03/2023 Results Created Date Observation Date Name Description Value Unit Range Abnormal Flag Note LastModifiedBy Organization Detail LastModifiedTime 12/23/1912/22/2022 LIPID PANEL cholesterol, total 126.0 mg/dL 140.0- 200.0 below low normal Not Available [facility] ([facility]) [address] [place], [address], 12/23/2022 06:17:04 12/23/1912/22/2022 LIPID PANEL triglyceride s 43 mg/dL <=150 Not Available [facility] ([facility]) [address] [place], [address], 12/23/2022 06:17:04 12/23/1912/22/2022 LIPID PANEL HDL cholesterol 79.3 mg/dL 40.0-1 00.0 Not Available [facility] ([facility]) [address] [place], [address], 12/23/2022 06:17:04 12/23/1912/22/2022 LIPID PANEL VLDL cholesterol jackson 8.60 mg/dL 5.00-4 0.00 Not Available [facility] ([facility]) [address] [place], [address], 12/23/2022 06:17:04 12/23/1912/22/2022 LIPID PANEL LDL chol calc ([facility]) 36.0 mg/dL 0.0-99 .0 Not Available [facility] ([facility]) [address] [place], [address], 12/23/2022 06:17:04 12/23/19 23 12/22/2022 COMP. METAB OLIC PANEL (14) glucose 92 mg/dL 65-99 ANION GP 16.0 mmol/ L N OSMOL 278.0 mOsM/ L N REFER ENCE RANGE : 275.0 -301. 0 Not Available [facility] ([facility]) [address] [facility] [place], [address], 12/23/2022 06:17:05 12/23/19 23 12/22/2022 COMP. METAB OLIC PANEL (14) BUN 10 mg/dL 8-26 Not Available [facility] ([facility]) [address] [facility] [place], [address], 12/23/2022 06:17:05 12/23/19 23 12/22/2022 COMP. METAB OLIC PANEL (14) creatinine 0.68 mg/dL 0.50-1 .40 Not Available [facility] ([facility]) [address] [facility] [place], [address], 12/23/2022 06:17:05 12/23/19 23 12/22/2022 COMP. METAB OLIC PANEL (14) eGFR 109 mL/mi n/1.7 3 >=60 Not Available [facility] ([facility]) [address] [place], [address], 12/23/2022 06:17:05 12/23/19 23 12/22/2022 COMP. METAB OLIC PANEL (14) BUN/creatini ne ratio 15.0 Not Available [facility] ([facility]) [address] [place], [address], 12/23/2022 06:17:05 12/23/19 23 12/22/2022 COMP. METAB OLIC PANEL (14) sodium 140.0 mmol/ L 136.0- 144.0 Not Available [facility] ([facility]) [address] [place], [address], 12/23/2022 06:17:05 12/23/19 23 12/22/2022 COMP. METAB OLIC PANEL (14) potassium 4.0 mmol/ L 3.5-5. 3 Not Available [facility] ([facility]) [address] [place], [address], 12/23/2022 06:17:05 12/23/19 23 12/22/2022 COMP. METAB OLIC PANEL (14) chloride 104 mmol/ l 101-11 1 Not Available [facility] ([facility]) [address] [place], [address], 12/23/2022 06:17:05 12/23/19 23 12/22/2022 COMP. METAB OLIC PANEL (14) carbon dioxide, total 23.9 mmol/ L 21.0-3 2.0 Not Available [facility] ([facility]) [address] [place], [address], 12/23/2022 06:17:05 12/23/19 23 12/22/2022 COMP. METAB OLIC PANEL (14) calcium 9.5 mg/dL 8.2-10 .0 Not Available [facility] ([facility]) [address] [place], [address], 12/23/2022 06:17:05 12/23/19 23 12/22/2022 COMP. METAB OLIC PANEL (14) protein, total 6.9 g/dL 6.7-8. 2 Not Available [facility] ([facility]) [address] [place], [address], 12/23/2022 06:17:05 12/23/19 23 12/22/2022 COMP. METAB OLIC PANEL (14) albumin 4.4 g/dL 3.5-5. 5 Not Available [facility] ([facility]) [address] [place], [address], 12/23/2022 06:17:05 12/23/19 23 12/22/2022 COMP. METAB OLIC PANEL (14) globulin, total 2.5 g/dL 1.5-4. 5 Not Available [facility] ([facility]) [address] [facility], [place], [address], 12/23/2022 06:17:05 12/23/19 23 12/22/2022 COMP. METAB OLIC PANEL (14) A/G ratio 1.8 Not Available [facility] ([facility]) [address] [facility], [place], [address], 12/23/2022 06:17:05 12/23/19 23 12/22/2022 COMP. METAB OLIC PANEL (14) bilirubin, total 0.8 mg/dL 0.0-1. 2 Not Available [facility] ([facility]) [address] [place], [address], 12/23/2022 06:17:05 12/23/19 23 12/22/2022 COMP. METAB OLIC PANEL (14) alkaline phosphatase 103.5 IU/L 42.0-1 21.0 Not Available [facility] ([facility]) [address] [place], [address], 12/23/2022 06:17:05 12/23/19 23 12/22/2022 COMP. METAB OLIC PANEL (14) AST (SGOT) 34.0 U/L 10.0-4 2.0 Not Available [facility] ([facility]) [address] [place], [address], 12/23/2022 06:17:05 12/23/19 23 12/22/2022 COMP. METAB OLIC PANEL (14) ALT (SGPT) 29.5 U/L 10.0-6 0.0 Not Available [facility] ([facility]) [address] [place], [address], 12/23/2022 06:17:05 12/23/1912/23/2022 HEMOG LOBIN A1C hemoglobin A1C 5.6 % 4.8-5. 6 Predi abete s: 5.7 - 6.4 Diabe mitchel: >6.4 Glyce ish contr ol for adult s with diabe mitchel: <7.0 Not Available [facility] ([facility]) [address] [facility], [place], [address], 12/23/2022 10:15:08 12/23/19 23 12/23/2022 PROST ATE-S PECIF IC AG prostate specific Ag 0.3 NG/mL 0.0-4. 0 Jaren ECLIA metho dolog y. Accor ding to the Ameri can Urolo gical Assoc iatio n, Serum PSA shoul d decre ase and remai n at undet ectab le level s after radic al prost atect rosita. The AUA defin es bioch emica l recur rence as an initi al PSA value 0.2 ng/mL or great er follo wed by a subse quent confi rmato ry PSA value 0.2 ng/mL or great er. Value s obtai rex with diffe rent assay metho ds or kits canno t be used inter taylor eably . Resul ts canno t be inter prete d as absol [place] evide nce of the prese nce or absen ce of [facility] naseem ann se. Not Available [facility] ([facility]) [address] [facility], [place], [address], 12/23/2022 10:15:09 12/23/1912/23/2022 VITAM IN D, 25-HY DROXY vitamin D, 25-hydroxy 17.6 NG/mL 30.0-1 00.0 below low normal Vitam in D defic iency has been defin ed by the Insti tute of Medic ine and an Endoc rine Socie ty pract ice guide line as a level of serum 25-OH vitam in D less than 20 ng/mL (1,2) . The Endoc rine Socie ty went on to furth er defin e vitam in D insuf ficie ncy as a level betwe en 21 and 29 ng/mL (2). 1. IOM (Inst itute of Medic ine). 2010. Dieta ry refer ence tera es for calci um and D. Kimberly mcclellan [place]: The [facility] Press . 2. Kendra k MF, Binkl ey [place], Bisch off-F errar i BARRIOS, et al. Evalu ation , treat ment, and preve ntion of vitam in D defic iency : an Endoc rine Socie ty clini jackson pract ice guide line. JCEM. 2010; 96(7) :1911 -30. Not Available [facility] ([facility]) [address] [facility], [place], [address], 12/23/2022 10:15:10 12/23/19 23 12/23/2022 DIABE MITCHEL PATIE NT EDUCA TION pdf Not applic able Not Available [facility] ([facility]) [address] [place], [address], 12/23/2022 10:15:07 12/23/19 23 12/23/2022 DIABE MITCHEL PATIE NT EDUCA TION pdf .* Not Available [facility] ([facility]) [address] [facility], [place], [address], 12/23/2022 09:15:02 12/23/19 23 12/22/2022 DIABE MITCHEL PATIE NT EDUCA TION pdf . Not Available [facility] ([facility]) [address] [facility], [place], [address], 12/23/2022 06:17:06 11/03/19 24 11/04/2023 LIPID PANEL cholesterol, total 114 mg/dL 100-19 9 Not Available [facility] ([facility]) [address] [place], [address], 11/04/2023 08:24:21 11/03/19 24 11/04/2023 LIPID PANEL triglyceride s 37 mg/dL 0-149 Not Available [facility] ([facility]) [address] [place], [address], 11/04/2023 08:24:21 11/03/19 24 11/04/2023 LIPID PANEL HDL cholesterol 71 mg/dL >39 Not Available [facility] ([facility]) [address] [place], [address], 11/04/2023 08:24:21 11/03/19 24 11/04/2023 LIPID PANEL VLDL cholesterol jackson 10 mg/dL 5-40 Not Available [facility] ([facility]) [address] [place], [address], 11/04/2023 08:24:21 11/03/19 24 11/04/2023 LIPID PANEL LDL chol calc ([facility]) 33 mg/dL 0-99 Not Available [facility] ([facility]) [address] [place], [address], 11/04/2023 08:24:21 11/03/19 24 11/04/2023 COMP. METAB OLIC PANEL (14) glucose 107 mg/dL 70-99 above high normal Not Available [facility] ([facility]) [address] [place], [address], 11/04/2023 08:24:21 11/03/19 24 11/04/2023 COMP. METAB OLIC PANEL (14) BUN 8 mg/dL 6-24 Not Available [facility] ([facility]) [address] [place], [address], 11/04/2023 08:24:21 11/03/19 24 11/04/2023 COMP. METAB OLIC PANEL (14) creatinine 0.77 mg/dL 0.76-1 .27 Not Available [facility] ([facility]) [address] [place], [address], 11/04/2023 08:24:21 11/03/19 24 11/04/2023 COMP. METAB OLIC PANEL (14) eGFR 104 mL/mi n/1.7 3 >59 Not Available [facility] ([facility]) [address] [facility], [place], [address], 11/04/2023 08:24:21 11/03/19 24 11/04/2023 COMP. METAB OLIC PANEL (14) BUN/creatini ne ratio 10 9-20 Not Available [facility] ([facility]) [address] [facility], [place], [address], 11/04/2023 08:24:21 11/03/19 24 11/04/2023 COMP. METAB OLIC PANEL (14) sodium 142 mmol/ L 134-14 4 Not Available [facility] ([facility]) [address] [facility], [place], [address], 11/04/2023 08:24:21 11/03/19 24 11/04/2023 COMP. METAB OLIC PANEL (14) potassium 4.1 mmol/ L 3.5-5. 2 Not Available [facility] ([facility]) [address] [facility], [place], [address], 11/04/2023 08:24:21 11/03/19 24 11/04/2023 COMP. METAB OLIC PANEL (14) chloride 105 mmol/ L 96-106 Not Available [facility] ([facility]) [address] [place], [address], 11/04/2023 08:24:21 11/03/19 24 11/04/2023 COMP. METAB OLIC PANEL (14) carbon dioxide, total 23 mmol/ L 20-29 Not Available [facility] ([facility]) [address] [facility], [place], [address], 11/04/2023 08:24:21 11/03/19 24 11/04/2023 COMP. METAB OLIC PANEL (14) calcium 9.1 mg/dL 8.7-10 .2 Not Available [facility] ([facility]) [address] [place], [address], 11/04/2023 08:24:21 11/03/19 24 11/04/2023 COMP. METAB OLIC PANEL (14) protein, total 6.5 g/dL 6.0-8. 5 Not Available [facility] ([facility]) [address] [place], [address], 11/04/2023 08:24:21 11/03/19 24 11/04/2023 COMP. METAB OLIC PANEL (14) albumin 4.1 g/dL 3.8-4. 9 Not Available [facility] ([facility]) [address] [place], [address], 11/04/2023 08:24:21 11/03/19 24 11/04/2023 COMP. METAB OLIC PANEL (14) globulin, total 2.4 g/dL 1.5-4. 5 Not Available [facility] ([facility]) [address] [place], [address], 11/04/2023 08:24:21 11/03/19 24 11/04/2023 COMP. METAB OLIC PANEL (14) A/G ratio 1.7 1.2-2. 2 Not Available [facility] ([facility]) [address] [place], [address], 11/04/2023 08:24:21 11/03/19 24 11/04/2023 COMP. METAB OLIC PANEL (14) bilirubin, total 0.6 mg/dL 0.0-1. 2 Not Available [facility] ([facility]) [address] [place], [address], 11/04/2023 08:24:21 11/03/19 24 11/04/2023 COMP. METAB OLIC PANEL (14) alkaline phosphatase 94 IU/L 44-121 Not Available [facility] ([facility]) [address] [facility], [place], [address], 11/04/2023 08:24:21 11/03/19 24 11/04/2023 COMP. METAB OLIC PANEL (14) AST (SGOT) 31 IU/L 0-40 Not Available [facility] ([facility]) [address] [facility], [place], [address], 11/04/2023 08:24:21 11/03/19 24 11/04/2023 COMP. METAB OLIC PANEL (14) ALT (SGPT) 45 IU/L 0-44 above high normal Not Available [facility] ([facility]) [address] [facility], [place], [address], 11/04/2023 08:24:21 11/03/19 24 11/04/2023 HEMOG LOBIN A1C hemoglobin A1C 6.2 % 4.8-5. 6 above high normal Predi abete s: 5.7 - 6.4 Diabe mitchel: >6.4 Glyce ish contr ol for adult s with diabe mitchel: <7.0 Not Available [facility] ([facility]) [address] [facility], [place], [address], 11/04/2023 08:24:22 11/03/19 24 11/04/2023 CBC, PLATE LET, NO DIFFE RENTI AL WBC 4.4 x10e3 /uL 3.4-10 .8 Not Available [facility] ([facility]) [address] [place], [address], 11/04/2023 08:24:23 11/03/19 24 11/04/2023 CBC, PLATE LET, NO DIFFE RENTI AL RBC 4.61 x10e6 /uL 4.14-5 .80 Not Available [facility] ([facility]) [address] [facility], [place], [address], 11/04/2023 08:24:23 11/03/19 24 11/04/2023 CBC, PLATE LET, NO DIFFE RENTI AL hemoglobin 14.5 g/dL 13.0-1 7.7 Not Available [facility] ([facility]) [address] [facility], [place], [address], 11/04/2023 08:24:23 11/03/19 24 11/04/2023 CBC, PLATE LET, NO DIFFE RENTI AL hematocrit 40.4 % 37.5-5 1.0 Not Available [facility] ([facility]) [address] [facility], [place], [address], 11/04/2023 08:24:23 11/03/19 24 11/04/2023 CBC, PLATE LET, NO DIFFE RENTI AL MCV 88 fL 79-97 Not Available [facility] ([facility]) [address] [facility], [place], [address], 11/04/2023 08:24:23 11/03/19 24 11/04/2023 CBC, PLATE LET, NO DIFFE RENTI AL MCH 31.5 pg 26.6-3 3.0 Not Available [facility] ([facility]) [address] [facility], [place], [address], 11/04/2023 08:24:23 11/03/19 24 11/04/2023 CBC, PLATE LET, NO DIFFE RENTI AL MCHC 35.9 g/dL 31.5-3 5.7 above high normal Not Available [facility] ([facility]) [address] [facility], [place], [address], 11/04/2023 08:24:23 11/03/19 24 11/04/2023 CBC, PLATE LET, NO DIFFE RENTI AL RDW 12.4 % 11.6-1 5.4 Not Available [facility] ([facility]) [address] [facility], [place], [address], 11/04/2023 08:24:23 11/03/19 24 11/04/2023 CBC, PLATE LET, NO DIFFE RENTI AL platelets 243 x10e3 /uL 150-45 0 Not Available [facility] ([facility]) [address] [facility], [place], [address], 11/04/2023 08:24:23 05/03/20 24 05/03/2024 HbA1c (hemo globi n A1c), blood HbA1c 5.4 Not Available In-Office Order Internal Use Only DO Not Attach Compendium DO Not Attach Compendium, Do Not Delete/merge, [id number] 05/03/2024 10:38:44 05/14/20 24 05/14/2024 COLOG UARD cologuard result reportable NEGATI VE negati ve normal NEGAT WEI TEST RESUL T. A negat wei Colog uard resul t indic ates a low likel ihood that a color ectal cance r (CRC) or advan shruthi adeno ma (pillo omato us polyp s with more advan shruthi pre-m align ant featu res) is prese nt. The [facility] e that a perso n with a negat wei Colog uard test has a color ectal cance r is less than 1 in 1500 (nega tive predi ctive value >99.9 %) or has an advan shruthi adeno ma is less than 5.3% (nega tive predi ctive value 94.7% ). These data are based on a prosp ectiv e cross -sect ional study of 10,00 0 indiv idual s at [facility] risk for color ectal cance r who were scree rex with both Colog uard and colon oscop y. (Bruce Rizo. et al, N Engl J Med 2014; 370(1 4):12 86-12 97) The staci l value (refe rence range ) for this assay is negat wei. COLOG UARD RE-SC SUNDAY BOWMAN RECOM MENDA TION: Perio dic color ectal cance r scree chrystal is an impor tant part of preve ntive healt hcare for asymp tomat ic indiv idual s at [facility] risk for color ectal cance r. Follo wing a negat wei Colog uard resul t, the Ameri can Cance r Socie ty and U.S. Multi -Soci ety Task Force scree chrystal guide lines recom mend a Colog uard re-sc sunday bowman inter marietta of 3 years . Refer ences : Ameri can Cance r Socie ty Guide line for Color ectal Cance r Scree chrystal: https ://raya w.can cer.o rg/ca ncer/ colon -rect al-ca ncer/ detec tion- diagn osis- stagi ng/ac s-rec ommen datio ns.ht ml.; Arpit DK, Damaso bai CR, Delfin holman JK, Color ectal Cance r Scree chrystal: Recom menda tions for Physi cians and Patie nts from the U.S. Multi -Soci ety Task Force on Color ectal Cance r Scree chrystal , Am Thee murphyntemma rolog y 2017; 112:1 016-1 030. TEST DESCR IPTIO N: [place] site algor ithmi c kuldeep sis of stool DNA-b helen lizama with hemog lobin immun oassa y. Quant itati ve value s of indiv idual bioma rkers are not repor table and are not assoc iated with indiv idual bioma rker resul t refer ence range s. Colog uard is inten ded for color ectal cance r scree chrystal of adult s of eithe r sex, 45 years or older , who are at [facility] for color ectal cance r (CRC) . Colog uard has been appro jairon for use by the U.S. FDA. The perfo rmanc e of Colog uard was estab lishe d in a cross secti onal study of [facility] adult s aged 50-84 . Colog uard perfo rmanc e in patie nts ages 45 to 49 years was estim ated by sumit-david marquez kuldeep sis of near- age group s. Colon oscop ies perfo rmed for a posit wei resul t may find as the most clini bryanna signi fican t lesio n: color ectal cance r [4.0% ], advan shruthi adeno ma (incl uding sessi le carmina erich polyp s great er than or equal to 1cm diame ter) [20%] or non- advan shruthi adeno ma [31%] ; or no color ectal neopl keenan [45%] . These estim ates are deriv ed from a prosp ectiv e cross -sect ional madalyn jarrell study of 0 indiv idual s at [facility] risk for color ectal cance r who were scree rex with both Colog uard and colon oscop y. (Bruce Morley et al, N Engl J Med 2014; 370(1 4):12 86-12 97.) Colog uard may produ ce a false negat wei or false posit wei resul t (no color ectal cance r or preca ncero us polyp prese nt at colon oscop y follo w up). A negat wei Colog uard test resul t does not guara ntee the absen ce of CRC or advan shruthi adeno ma (pre- cance r). The curre nt Colog uard madalyn maldonadog inter marietta is every 3 years . ([employer] ty and [employer] Multi -[employer] Task Force ). Colog uard perfo rmanc e data in a 0 patie nt pivot al study using colon oscop y as the refer ence metho d can be acces sed at the follo wing locat ion: www.e xactl abs.c om/re annemarie . Addit ional descr iptio n of the Colog uard test proce ss, warni ngs and preca ution s can be found at [email or web address]. Not Available [employer] (Cologuard Orders Only) [address], [place], [address], 05/18/2024 05:00:58 06/15/20 24 06/15/2024 Urina lysis panel - Urine by Auto glucose UA neg Gluco se UA neg [facility] [address] Not Available Not Available 10/24/2024 11:59:39 06/15/20 24 06/15/2024 Urina lysis panel - Urine by Auto bilirubin UA poct neg Bilir ubin UA POCT neg [facility] [address] Not Available Not Available 10/24/2024 11:59:39 06/15/20 24 06/15/2024 Urina lysis panel - Urine by Auto ketones UA poct neg [place] es UA POCT neg [address] Not Available Not Available 10/24/2024 11:59:39 06/15/20 24 06/15/2024 Urina lysis panel - Urine by Auto specific gravity UA 1.01 Speci fic Gravi ty UA 1.[address] Not Available Not Available 10/24/2024 11:59:39 06/15/20 24 06/15/2024 Urina lysis panel - Urine by Auto blood urine poct neg Blood Urine POCT neg [address] Not Available Not Available 10/24/2024 11:59:39 06/15/20 24 06/15/2024 Urina lysis panel - Urine by Auto pH UA 5.5 pH UA 5.[address] Not Available Not Available 10/24/2024 11:59:39 06/15/2006/15/2024 Urina lysis panel - Urine by Auto protein UA +- 0.15g/ L Prote in UA +- 0.15g /L [address] Not Available Not Available 10/24/2024 11:59:39 06/15/20 24 06/15/2024 Urina lysis panel - Urine by Auto urobilinogen UA neg 3.5umo l/L Urobi linog en UA neg 3.5um ol/L [address] Not Available Not Available 10/24/2024 11:59:39 06/15/20 24 06/15/2024 Urina lysis panel - Urine by Auto nitrite UA neg Nitri te UA neg [address] Not Available Not Available 10/24/2024 11:59:39 06/15/20 24 06/15/2024 Urina lysis panel - Urine by Auto WBC UA neg WBC UA neg [address] Not Available Not Available 10/24/2024 11:59:39 06/15/20 24 06/15/2024 Creat inine [Mass /volu me] in Blood creatinine [mass/volume ] in blood 0.93 mg/dL low: 0.7mg/ dLhigh : 1.2mg/ dL Creat inine POCT 0.93 0.70 - 1.20 mg/dL 06/15 12:04 PM CDT [facility] Not Available Not Available 10/24/2024 11:03:21 06/15/20 24 06/15/2024 Creat inine [Mass /volu me] in Blood glomerular filtration rate/1.73 sq M.predicted [volume rate/area] in serum, plasma or blood by creatinine-b ased formula (CKD-epi 2020) text: >=90 mL/min /1.73 m2 eGFR >90 >=90 mL/mi n/1.7 3 m2 06/15 12:04 PM CDT [facility] Not Available Not Available 10/24/2024 11:03:21 06/15/20 24 06/15/2024 Creat inine [Mass /volu me] in Blood interpretati on and review of laboratory results Normal Not Available Not Available 10/13 11:03:21 10/25/19 25 10/25/2024 ALBUM IN/CR EAT RATIO , RANDO M UR creatinine, urine 281.5 mg/dL notest ab. Not Available [facility] ([facility]) [address] [place], [address], 10/25/2024 13:14:31 10/25/19 25 10/25/2024 ALBUM IN/CR EAT RATIO , RANDO M UR albumin, urine 11.8 ug/mL notest ab. Not Available [facility] ([facility]) [address] [place], [address], 10/25/2024 13:14:31 10/25/19 25 10/25/2024 ALBUM IN/CR EAT RATIO , RANDO M UR alb/creat ratio 4 mg/g_ creat 0-29 Staci l: 0 - 29 Moder ately incre ased: 30 - 300 Sever dave incre ased: >300 Not Available [facility] ([facility]) [address] [place], [address], 10/25/2024 13:14:31 10/25/19 25 10/25/2024 TSH+F REE T4 TSH 1.180 uIU/m L 0.450- 4.500 Not Available [facility] ([facility]) [address] [place], [address], 10/25/2024 13:14:32 10/25/19 25 10/25/2024 TSH+F REE T4 T4,free(dire ct) 1.39 NG/dL 0.82-1 .77 Not Available [facility] ([facility]) [address] [place], [address], 10/25/2024 13:14:32 10/25/19 25 10/25/2024 LIPID PANEL cholesterol, total 132 mg/dL 100-19 9 Not Available [facility] ([facility]) [address] [place], [address], 10/25/2024 13:14:33 10/25/19 25 10/25/2024 LIPID PANEL triglyceride s 65 mg/dL 0-149 Not Available [facility] ([facility]) [address] [place], [address], 10/25/2024 13:14:33 10/25/19 25 10/25/2024 LIPID PANEL HDL cholesterol 75 mg/dL >39 Not Available [facility] ([facility]) [address] [place], [address], 10/25/2024 13:14:33 10/25/19 25 10/25/2024 LIPID PANEL VLDL cholesterol jackson 14 mg/dL 5-40 Not Available [facility] ([facility]) [address] [place], [address], 10/25/2024 13:14:33 10/25/19 25 10/25/2024 LIPID PANEL LDL chol calc ([facility]) 43 mg/dL 0-99 Not Available [facility] ([facility]) [address] [place], [address], 10/25/2024 13:14:33 10/25/19 25 10/25/2024 COMP. METAB OLIC PANEL (14) glucose 119 mg/dL 70-99 above high normal Not Available [facility] ([facility]) [address] [place], [address], 10/25/2024 13:14:35 10/25/19 25 10/25/2024 COMP. METAB OLIC PANEL (14) BUN 10 mg/dL 6-24 Not Available [facility] ([facility]) [address] [place], [address], 10/25/2024 13:14:35 10/25/19 25 10/25/2024 COMP. METAB OLIC PANEL (14) creatinine 0.75 mg/dL 0.76-1 .27 below low normal Not Available [facility] ([facility]) [address] [place], [address], 10/25/2024 13:14:35 10/25/19 25 10/25/2024 COMP. METAB OLIC PANEL (14) eGFR 105 mL/mi n/1.7 3 >59 Not Available [facility] ([facility]) [address] [place], [address], 10/25/2024 13:14:35 10/25/19 25 10/25/2024 COMP. METAB OLIC PANEL (14) BUN/creatini ne ratio 13 9-20 Not Available [facility] ([facility]) [address] [place], [address], 10/25/2024 13:14:35 10/25/19 25 10/25/2024 COMP. METAB OLIC PANEL (14) sodium 140 mmol/ L 134-14 4 Not Available [facility] ([facility]) [address] [place], [address], 10/25/2024 13:14:35 10/25/19 25 10/25/2024 COMP. METAB OLIC PANEL (14) potassium 4.2 mmol/ L 3.5-5. 2 Not Available [facility] ([facility]) [address], [place], [address], 10/25/2024 13:14:35 10/25/19 25 10/25/2024 COMP. METAB OLIC PANEL (14) chloride 104 mmol/ L 96-106 Not Available [facility] ([facility]) [address], [place], [address], 10/25/2024 13:14:35 10/25/19 25 10/25/2024 COMP. METAB OLIC PANEL (14) carbon dioxide, total 21 mmol/ L 20-29 Not Available [facility] ([facility]) [address], [place], [address], 10/25/2024 13:14:35 10/25/19 25 10/25/2024 COMP. METAB OLIC PANEL (14) calcium 9.1 mg/dL 8.7-10 .2 Not Available [facility] ([facility]) [address], [place], [address], 10/25/2024 13:14:35 10/25/19 25 10/25/2024 COMP. METAB OLIC PANEL (14) protein, total 6.7 g/dL 6.0-8. 5 Not Available [facility] ([facility]) [address], [place], [address], 10/25/2024 13:14:35 10/25/19 25 10/25/2024 COMP. METAB OLIC PANEL (14) albumin 4.2 g/dL 3.8-4. 9 Not Available [facility] ([facility]) [address], [place], [address], 10/25/2024 13:14:35 03/12/20 25 10/25/2024 COMP. METAB OLIC PANEL (14) globulin, total 2.5 g/dL 1.5-4. 5 Not Available [facility] ([facility]) [address] [facility], [place], [address], 10/25/2024 13:14:35 10/25/19 25 10/25/2024 COMP. METAB OLIC PANEL (14) bilirubin, total 0.8 mg/dL 0.0-1. 2 Not Available [facility] ([facility]) [address] [facility], [place], [address], 10/25/2024 13:14:35 10/25/19 25 10/25/2024 COMP. METAB OLIC PANEL (14) alkaline phosphatase 87 IU/L 44-121 Not Available [facility] ([facility]) [address] [facility] [place], [address], 10/25/2024 13:14:35 10/25/19 25 10/25/2024 COMP. METAB OLIC PANEL (14) AST (SGOT) 48 IU/L 0-40 above high normal Not Available [facility] ([facility]) [address] [place], [address], 10/25/2024 13:14:35 10/25/19 25 10/25/2024 COMP. METAB OLIC PANEL (14) ALT (SGPT) 50 IU/L 0-44 above high normal Not Available [facility] ([facility]) [address] [place], [address], 10/25/2024 13:14:35 10/25/19 25 10/25/2024 PHOSP HORUS phosphorus 2.4 mg/dL 2.8-4. 1 below low normal Not Available [facility] ([facility]) [address] [place], [address], 10/25/2024 13:14:36 10/25/19 25 10/25/2024 HEMOG LOBIN A1C hemoglobin A1C 6.3 % 4.8-5. 6 above high normal Predi abete s: 5.7 - 6.4 Diabe mitchel: >6.4 Glyce ish contr ol for adult s with diabe mitchel: <7.0 Not Available [facility] ([facility]) [address] [facility], [place], [address], 10/25/2024 13:14:37 10/25/19 25 10/25/2024 MAGNE SIUM magnesium 1.8 mg/dL 1.6-2. 3 Not Available [facility] ([facility]) [address] [facility], [place], [address], 10/25/2024 13:14:39 10/15/19 24 10/15/2023 XR, shoul hadley No observ ation record ed. [place] [address], [place], [address], 10/31/2023 10:22:09 Result Notes None recorded. Problems Name Problem SNOMED Code Status Onset Date Resolution Date Notes Provider Name and Address Organization Details Recorded Time Neck pain 41796464 Active 2017 Kaycee Ascencio MD Attn: Silviano hernandez,[address] [place], [address], [facility] 8 17:17:51 Paresthesia of upper limb 46271029 Active 2017 MICE Kaycee Ascencio MD Attn: Silviano hernandez,[address] [place], [address], [facility] 8 17:18:30 Abnormal urinalysis 698031982 Active 2017 Trace Blood Kaycee Ascencio MD Attn: Silviano hernandez,[address] [place], [address], [facility] 8 09:29:34 Urethritis 34134316 Active 2017 Kaycee Ascencio MD Attn: Silviano hernandez,[address] [place], [address], [place] [facility] 8 18:26:38 Anxiety 23921468 Active 2017 Kaycee Ascencio MD Attn: Lashasal hernandez,[address] [facility], [place], [address], [place] [facility] 8 18:29:14 Impotence Completed 201806/15/2021 Kaycee Ascencio MD Attn: Silviano david,[address] [facility], [place], [address], [place] [facility] 1 14:04:56 Carcinoma of urinary bladder, 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 Kaycee Ascencio MD Attn: Silviano hernandez,[address] [facility], [place], [address], [place] [facility] 9 18:15:47 Hyperglycem ia 43958446 Completed 201910/16/2020 Kaycee Ascencio MD Attn: Silviano hernandez,[address] [facility], [place], [address], [place] [facility] 1 10:38:30 Vitamin D deficiency 73700311 Active 2019 Kaycee Ascencio MD Attn: Silviano hernandez,[address] [place], [address], [place] [facility] 0 02:16:58 Screening for malignant neoplasm of prostate Active 2020 Kaycee Ascencio MD Attn: Silviano hernandez,[address] [facility], [place], [address], [place] [facility] 1 13:11:48 Onychomycos is 961656689 Active 2020 Kaycee Ascencio MD Attn: Silviano hernandez,[address] [facility], [place], [address], [place] [facility] 1 13:13:08 Type 2 diabetes mellitus 16427137 Active 2020 New onset Kaycee Ascencio MD Attn: Silviano hernandez,[address], [place], [address], [place] [facility] 1 10:38:12 Erectile dysfunction 096723635 Active 2020 Kaycee Ascencio MD Attn: Silviano hernandez,[address] [facility], [place], [address], [place] [facility] 1 14:04:34 Hypokalemia 50363393 Active 2021 Kaycee Ascencio MD Attn: Silviano hernandez,[address] [facility], [place], [address], [place] [facility] 2 12:43:30 Active immunizatio n Active 2022 Kaycee Ascencio MD Attn: Silviano hernandez,[address] [facility], [place], [address], [place] [facility] 3 18:03:56 Elevated blood-press ure reading without diagnosis of hypertensio n 484497673 Active 2022 Kaycee Ascencio MD Attn: Silviano hernandez,[address] [facility], [place], [address], [place] [facility] 3 12:52:47 Adult health examination Active 2023 Kaycee Ascencio MD Attn: Lashasal hernandez,[address] [facility], [place], [address], [place] [facility] 4 12:41:25 Disorder of shoulder 359945291 Active 2023 Kaycee Ascencio MD Attn: Lashasal hernandez,[address] [facility], [place], [address], [place] [facility] 4 12:42:22 Screening for malignant neoplasm of colon Active 2023 Kaycee Ascencio MD Attn: Silviano david,[address] [facility], [place], [address], [place] [facility] 4 10:39:38 Spasmodic movement 365648575 Active 2024 Kaycee Ascencio MD Attn: Silviano hernandez,[address] [facility], [place], [address], [place] [facility] 5 12:05:11 Fawn 71030342 Active 2024 Kaycee Ascencio MD Attn: Silviano david,[address] [facility], [place], [address], [place] [facility] 5 12:08:26 Urinary symptoms 793066858 Active Kaycee Ascencio MD Attn: Silviano hernandez,[address] [facility], [place], [address], [place] [facility] 6 15:55:06 Allergic rhinitis 59293805 Active Kaycee Ascencio MD Attn: Silviano david,[address] [facility], [place], [address], [place] [facility] 6 15:55:06 Cough 70563829 Active Kaycee Ascencio MD Attn: Silviano hernandez,[address] [facility], [place], [address], [place] [facility] 6 15:55:06 History of cerebrovasc ular disease 758101631 Active 2016 Kaycee Ascencio MD Attn: Silviano david,[address] [facility], [place], [address], [place] [facility] 7 16:09:10 History of transient ischemic attack 500015844 Active 2016 Kaycee Ascencio MD Attn: Silviano hernandez,[address] [place], [address], [place] [facility] 7 16:09:28 Complaining of erectile dysfunction Completed 201606/15/2021 Kaycee Ascencio MD Attn: Silviano hernandez,[address] [place], [address], [place] [facility] 1 14:04:47 Problem Notes None recorded. Medical Equipment None Reported. Allergies No known drug allergies Medications Name Sig Start Date Stop Date Status Note LastModified by Organization Details LastModified Time Prescriptio n - Prior Authorizati on Request 10/10 completed Not Available Not Available Not Available cyclobenzap rine 10 mg tablet TAKE 1 TABLET BY MOUTH THREE TIMES DAILY NEEDED FOR MUSCLE SPASM 05/03 completed Not Available Not Available Not Available atorvastati n 40 mg tablet TAKE 1 TABLET BY MOUTH EVERY NIGHT active Not Available Not Available No t Available prednisone 10 mg tablet 10/23 completed Not Available Not Available Not Available doxycycline hyclate 100 mg capsule Take 1 capsule twice a day by oral route. 10/23 completed Not Available Not Available Not Available cetirizine 10 mg tablet TAKE 1 TABLET BY MOUTH EVERY DAY 05/24 completed Not Available Not Available Not Available hydrocodone 5 mg-acetamin ophen 325 mg tablet 10/23 completed Not Available Not Available Not Available prednisone 20 mg tablet TAKE 1 TABLET BY MOUTH DAILY 05/03 completed Not Available Not Available Not Available clopidogrel 75 mg tablet TAKE 1 TABLET BY MOUTH DAILY active Not Available Not Available No t Available tamsulosin 0.4 mg capsule 10/23 completed Not Available Not Available Not Available meclizine 25 mg tablet TAKE 1 TABLET BY MOUTH TWICE DAILY NEEDED FOR DIZZINESS 12/06 completed Not Available Not Available Not Available doxycycline monohydrate 100 mg capsule take 1 capsule by mouth twice daily 10/23 completed Not Available Not Available Not Available lidocaine 5 % topical patch APPLY 1 PATCH TOPICALLY TO LEFT SHOULDER DAILY. MAY WEAR UP TO 12 HOURS active Not Available Not Available No t Available hydroxyzine HCl 25 mg tablet Take one hour prior to procedure 10/01 completed Not Available Not Available Not Available alcohol swabs USE ONCE DAILY DIRECTED 11/02 completed Not Available Not Available Not Available ergocalcife rol (vitamin D2) 1,250 mcg (50,000 unit) capsule TAKE 1 CAPSULE BY MOUTH EVERY WEEK 11/02 completed Not Available Not Available Not Available oxybutynin chloride 5 mg tablet 10/23 completed Not Available Not Available Not Available fluticasone propionate 50 mcg/actuati on nasal spray,suspe nsion SHAKE LIQUID AND USE 2 SPRAYS IN EACH NOSTRIL EVERY DAY 12/06 completed Not Available Not Available Not Available azithromyci n 1 gram oral packet Take 1 packet every day by oral route for 1 day. 10/10 completed Not Available Not Available Not Available azithromyci n 500 mg tablet 10/10 completed Not Available Not Available Not Available tadalafil 20 mg tablet Take 1 TABLET BY MOUTH 1 HOUR PRIOR TO SEXUAL ACTIVITY DIRECTED, NOT TO EXCEED 1 IN 24 HOURS. active Not Available Not Available No t Available Cialis 10 mg tablet Take 1 tablet every day by oral route. 11/17 completed Not Available Not Available Not Available OneTouch Verio test strips TEST ONCE DAILY DIRECTED 11/02 completed Not Available Not Available Not Available OneTouch Delica Plus Lancet 33 gauge USE ONCE DAILY DIRECTED 11/02 completed Not Available Not Available Not Available Vitals Date Recorded Body height Body mass index (BMI) Body weight Heart rate Body temperature Oxygen saturation Oxygen saturation in Arterial blood by Pulse oximetry Systolic blood pressure Diastolic blood pressure Provider Name and Address Organization Details Last Updated DateTime 5 182.88 cm 31.5 kg/m2 904633. 43 g 69 /min 98.2 [degF] 99 % 99 % 160 mm[Hg] 93 mm[Hg] Marbella Hughes MA [facility] 5 11:12:40 Date Recorded Body height Body mass index (BMI) Body weight Heart rate Body temperature Oxygen saturation Oxygen saturation in Arterial blood by Pulse oximetry Systolic blood pressure Diastolic blood pressure Provider Name and Address Organization Details Last Updated DateTime 4 182.88 cm 30.9 kg/m2 023166. 06 g 71 /min 98.1 [degF] 98 % 98 % 138 mm[Hg] 88 mm[Hg] Elizabeth Ribeiro MA [facility] 4 12:05:16 Date Recorded Body height Body mass index (BMI) Body weight Body temperature Oxygen saturation Oxygen saturation in Arterial blood by Pulse oximetry Heart rate Systolic blood pressure Diastolic blood pressure Provider Name and Address Organization Details Last Updated DateTime 3 182.88 cm 30.4 kg/m2 435303. 69 g 98.3 [degF] 96 % 96 % 87 /min 140 mm[Hg] 86 mm[Hg] Elizabeth Ribeiro MA [facility] 3 17:33:40 Date Recorded Body height Body mass index (BMI) Body weight Oxygen saturation Oxygen saturation in Arterial blood by Pulse oximetry Heart rate Systolic blood pressure Diastolic blood pressure Provider Name and Address Organization Details Last Updated DateTime 4 182.88 cm 30.1 kg/m2 676137. 51 g 99 % 99 % 67 /min 149 mm[Hg] 91 mm[Hg] Donna Ray MA [facility] 4 10:15:37 Date Recorded Body height Body mass index (BMI) Body weight Heart rate Body temperature Oxygen saturation Oxygen saturation in Arterial blood by Pulse oximetry Systolic blood pressure Diastolic blood pressure Provider Name and Address Organization Details Last Updated DateTime 3 182.88 cm 30 kg/m2 919130. 91 g 65 /min 98.1 [degF] 97 % 97 % 158 mm[Hg] 88 mm[Hg] Elizabeth Ribeiro MA [facility] 3 12:40:43 Social History Question Answer Notes LastModified by [employer] Details LastModified Time Tobacco Smoking Status Former Smoker Simon Lucero MA [facility], [facility] 09/15/2015 16:15:11 Are You Blind Or Do You Have Difficulty Seeing? No Information not available 05/03/2024 Are You Deaf Or Do You Have Serious Difficulty Hearing? No Information not available 05/03/2024 What Type Of Diet Are You Following? REGULAR Information not available 05/03/2024 What Was The Date Of Your Most Recent Tobacco Screening? 10/24/2024 [email or web address] Information not available 10/24/2024 Do You Use Your Seat Belt Or Car Seat Routinely? Yes Information not available 05/03/2024 Has Tobacco Cessation Counseling Been Provided? No Information not available 12/06/2022 How Many Years Have You Smoked Tobacco? 20 Information not available 05/03/2024 Sex: Male Functional Status Question Answer Note LastModified by [employer] Details LastModified Time Do you or have you ever used any other forms of tobacco or nicotine? No Information not available 12/06/2022 What is your exercise level? Occasional Information not available 05/03/2024 Mental Status Question Answer Note LastModified by Organization D etails LastModified Time Do you feel stressed (tense, restless, nervous, or anxious, or unable to sleep at night)? [id number] [email or web address] Information not available 05/03/2024 Family History Relationship Description Onset Age of this Age Resolved Age Notes LastModified by Organization Details LastModified Time Father Coronary arterioscler osis [email or web address] Not available 2015 17:02:11 Medical History Condition Response Coronary Artery Disease N Other N High Blood Pressure N Atrial Fibrillation N Kidney or Bladder Problems N Thyroid Problems N GI Problems N Depression N COPD N Blood Clots N Have you had a mammogram in the last yea r? N Skin Problems N Anemia N Heart Attack ([place]) N Anxiety Disorder N Diabetes N Muscle, Joint, or Bone Problems N Seizures/Epilepsy N Have you had a colonoscopy in the last 1 0 years? N Acid Reflux (GERD) N Cancer Y Stroke Y Asthma N Allergies N Have you had a PSA blood test in the las t year? Y High Cholesterol Y Hepatitis N Liver Disease N Headaches N Heart Failure N Osteoporosis N Immunizations Vaccine Type Date Status Note Provider Nam e and Address Organization Details Recorded Time Hep A, adult 12/06/2022 completed [facility] 12/06/2022 18:19:21 Hep A, adult 06/07/2023 completed [facility] 06/07/2023 14:30:43 Past Encounters Encounter ID Performer Location Encounter Start Date Encounter Closed Date Diagnosis/Indication Diagnosis SNOMED-CT Code Diagnosis ICD10 Code Diagnosis Note [id number] MD Ok Saucedo (Adult Med) [address] [place] [address] 09/15/2015 15:01:42 09/15/2015 17:28:12 Adult health examination 791671068 Z00.00 [id number] MD Ok Saucedo (Adult Med) [address] [place] [id number] 11/03/2015 15:09:07 11/05/2015 11:33:28 Urinary symptoms 712411374 R39.9 Allergic rhinitis 192309 04 J30.9 Cough 83299090 R05 [id number] MD Ok Saucedo (Adult Med) [address] [place] [id number] 10/04/2016 14:57:43 10/04/2016 16:30:51 History of cerebrovascular disease 447159288 Z86.79 History of transient ischemic attack 023014410 Z86.73 08/2016 Complainin g of erectile dysfunction 455998859 N52.9 [id number] MD Ok Saucedo (Adult Med) [address] [place] [id number] 03/21/2017 15:43:52 03/22/2017 13:40:38 History of transient ischemic attack 357074584 Z86.73 Watch diet, slowly increase activity Allergic rhinitis 861747 04 J30.9 [id number] MD Ok Saucedo (Adult Med) [address] [place] [id number] 11/15/2017 15:33:18 11/16/2017 10:09:48 Neck pain 48788163 M54.2 Paresthesi a of upper limb 53603585 R20.2 Complainin g of erectile dysfunction 161812082 N52.9 [id number] MD Ok Saucedo (Adult Med) [address] [place] [id number] 02/06/2018 09:55:17 02/07/2018 12:22:29 Paresthesia of upper limb 17971932 R20.2 Urinary symptoms 7984359 08 R39.9 [id number] MD Ok Saucedo (Adult Med) [address] [place] [id number] 04/20/2018 16:55:09 04/21/2018 10:18:37 Urethritis 38764365 N34.2 Anxiety 28920727 F41.9 Prior to procedure [id number] MD Ok Saucedo (Adult Med) [address] [place] [id number] 10/10/2018 17:14:04 10/11/2018 10:58:06 Allergic rhinitis 68089943 J30.9 Cough 78906408 R05 Impotence 077012277 N52. 9 Complainin g of erectile dysfunction 664010023 N52.9 [id number] MD Ok Saucedo (Adult Med) [address] [place] [id number] 10/24/2019 12:12:55 10/25/2019 12:54:30 Complaining of erectile dysfunction 648503787 N52.9 History of cerebrovascular disease 197897018 Z86.79 Neck pain 43845360 M54.2 Paresthesi a of upper limb 93002286 R20.2 Impotence 972499443 N52. 9 Carcinoma of urinary bladder, superficial 611344250 C67.9 [id number] MD Ok Saucedo (Adult Med) [address] [place] [id number] 10/08/2020 10:32:33 10/09/2020 10:41:51 History of cerebrovascular disease 277114519 Z86.79 Hyperglycemia 01142455 R 73.9 Vitamin D deficiency 347 83506 E55.9 Onychomycosis 435963242 B35.1 [id number] [facility] [address] [place] [address] 17140-538 0 06/15/2021 12:15:26 06/16/2021 17:34:26 Type 2 diabetes mellitus 81914335 E11.9 Vitamin D deficiency 347 15929 E55.9 History of cerebrovascular disease 770212399 Z86.79 Carcinoma of urinary bladder, superficial 345253117 C67.9 Allergic rhinitis 391243 04 J30.9 Erectile dysfunction 860 810380 F52.21 [id number] Kaycee Ascencio MD [facility] (Adult [facility] [address] [place] [address] 04359-524 0 10/01/2021 11:53:32 10/02/2021 08:52:34 Type 2 diabetes mellitus 55358933 E11.9 Cont current rx Vitamin D deficiency 347 88010 E55.9 History of cerebrovascular disease 860773773 Z86.79 Carcinoma of urinary bladder, superficial 442650630 C67.9 F/U with urology Allergic rhinitis 543846 04 J30.9 [id number] MD [facility] (Adult Med) [address] [place] [address] [phone] 0 03/22/2022 12:12:13 03/23/2022 11:27:26 History of transient ischemic attack 643757087 Z86.73 Watch diet, slowly increase activity History of cerebrovascular disease 416733376 Z86.79 Type 2 sakina betes mellitus 76849277 E11.9 Cont current rx Hypokalemia 26089165 E87 .6 Corrected. Continue dietary supplement s [id number] MD [facility] (Adult Med) [address] [place] [address] [phone] 0 05/24/2022 11:00:02 05/25/2022 09:17:40 Hypokalemia 71584871 E87.6 Corrected. Continue dietary supplement s History of cerebrovascular disease 210720713 Z86.79 Type 2 sakina betes mellitus 04934596 E11.9 Cont current rx [id number] MD [facility] (Adult Med) [address] [place] [address] 14823-098 0 12/06/2022 17:24:34 12/08/2022 09:27:52 Obesity 575040330 E66.9 History of cerebrovascular disease 434117091 Z86.79 Cont current meds Screening for malignant neoplasm of prostate 666319071 Z12.5 Type 2 sakina betes mellitus 66611272 E11.9 Cont current rx Vitamin D deficiency 347 04989 E55.9 Allergic rhinitis 062375 04 J30.9 Active immunization 3387 9002 Z23 [id number] MD [facility] (Adult Med) [address] [place] [address] [phone] 0 06/07/2023 12:28:45 06/08/2023 13:05:06 Elevated blood-pressure reading without diagnosis of hypertension 765615289 R03.0 Active immunization 3387 9002 Z23 Type 2 sakina betes mellitus 78537046 E11.9 Cont current rx [id number] MD [facility] (Adult Med) [address] [place] [address] 32192-891 0 11/03/2023 11:42:05 11/03/2023 12:52:31 Obesity 528743245 E66.9 Adult heal th examination 017932006 Z00.00 Disorder of shoulder 118 499204 M25.819 Cont lidocaine patch. Refer to ortho [id number] MD [facility] (Adult Med) [address] [place] [address] [place] [address] 0 05/03/2024 09:45:24 05/15/2024 19:39:20 Type 2 diabetes mellitus 22868083 E11.9 Cont current rx History of cerebrovascular disease 673931890 Z86.79 Cont current meds Screening for malignant neoplasm of colon 149415348 Z12.11 [id number] Kaycee Ascencio MD [facility] (Adult Med) [address] [place] [address] 66279-036 0 10/24/2024 11:02:44 10/25/2024 13:34:11 Type 2 diabetes mellitus 86133721 E11.9 Cont current rx Spasmodic movement 59435 6004 R25.3 Anxiety 26482806 F41.9 Prior to procedure Carcinoma of urinary bladder, superficial 571173965 C67.9 F/U with urology [place] 65725943 R06.6 Observe Health Concerns Section Related Observation LastModified by Organization Detai ls LastModified Time None Recorded Concern Status LastModified by Organization Details LastModified Time None Recorded Advance Directives Directive None Recorded Payers Encounter Date Sequence Insurance Name Policy Number Policy Galdamez Covered Member ID Galdamez Member ID Guarantor Name 12/06/2022 1 [facility] (MEDICAID HMO) [id number] Familia Franco [id number] Familia Franco 06/07/2023 1 [facility] (MEDICAID HMO) [id number] 0003 Familia Franco [id number] Familia Franco 11/03/2023 1 [facility] (MEDICAID HMO) [id number] 0003 Familia Franco [id number] Familia Franco 05/03/2024 1 [facility] (MEDICAID HMO) [id number] 0003 Familia Franco [id number] Familia Franco 10/24/2024 1 [facility] (MEDICAID HMO) [id number] 0003 Familia Franco [id number] Familia Franco Notes Date Note Type Note Provider Name and Address Organization Details Recorded Time 12/06/2022 text/html No new complaint s. Here for routine f/u Kaycee Ascencio MD Attn: [address]ing[address] [facility], [place], [address], [place] - [facility] 12/06/2022 18:11:11 06/07/2023 text/html F/U from last vi sit. Has pain in R foot x 1 month Kaycee Ascencio MD Attn: [address]ing[address] [facility], [place], [address], [place] [facility] 06/08/2023 13:16:51 11/03/2023 text/html Here for annual evaluation. Was seen in ED two weeks ago for left shoulder pain. Sent home on lidocaine patches and muscle relaxant. Has limited mobility associate with pain Kaycee Ascencio MD Attn: Accounting[address] [facility], [place], [address], [facility] - [facility] 11/03/2023 12:49:58 05/03/2024 text/html Here for BP f/u. He is doing well. His shoulder is better following intraarticular steroids and PT. He has a loop recorder placed in 2017 that he is unsure what should follow Kaycee Ascencio MD Attn: Accounting[address] [facility], [place], [address], [place] - [facility] 05/03/2024 10:41:09 10/24/2024 text/html Here for routine f/u. He has had generalized muscle spasms for over a year. He has had hiccups for the past three months. Episodes last about 15 mins Kaycee Ascencio MD Attn: Accounting[address] [facility], [place], [address], [place] [facility] 10/24/2024 12:09:35
--- NOTE | 2025-01-23 08:19 | ED_ITS ---
HPI - General Adult General Chief complaint: Unspecified Stated complaint: ?syncopal event Time Seen by Provider: 01/23/25 08:04 History of Present Illness HPI narrative: Patient is a 59-year-old male who presents with his for concern for possible seizure. Patient was in his living room on account she. He had been smoking marijuana and was coughing very forcefully and could not breathe. He then lost consciousness falling on his face on the floor. heard the thud. When she arrived he was shaking. No loss of bladder but did bite his tongue. No history of seizures. He does have history of stroke in takes Plavix. Episode lasted 30 seconds. He was unconscious but he remembers hearing her talking to him as he was becoming reoriented. No new medications. He was drinking some alcohol yesterday. Related Data Home Medications ?Medication ?Instructions ?Recorded ?Confirmed ?Last Taken ?Type atorvastatin 40 mg tablet 40 mg PO DAILY 03/09/22 03/09/22 Unknown History clopidogrel 75 mg tablet 75 mg PO DAILY 03/09/22 03/09/22 Unknown History Allergies Allergy/AdvReac Type Severity Reaction Status Date / Time No Known Allergies Allergy Unverified 03/09/22 14:13 Review of Systems 2 Review of Systems: All systems reviewed & are unremarkable except as noted in HPI and below Constitutional: Constitutional: Reports no additional constitutional complaints ENT: Reports system reviewed and no additional complaints, except as documented Cardiovascular: Cardiovascular: Reports no additional cardiovascular complaints Respiratory: Respiratory: Reports no additional respiratory complaints Gastrointestinal: Gastrointestinal: Reports no additional gastrointestinal complaints [facility] Past Medical History Medical History CVA (cerebral vascular accident) Hyperlipidemia Family History Family History Father Heart disease Hypertension Mother Lung cancer Social History Social History Social History: Patient lives at home with his Gifty who will be his surrogate. 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 Gender identity (if verbalized by the patient): Male Sexual Orientation (if Verbalized by the Patient): Straight or Heterosexual Spiritual care concerns: No Agree to blood products: Yes Exam 2 Narrative: GENERAL: Well-appearing, well-nourished, and in no acute distress. HEAD: Normocephalic, atraumatic. ENT: Mucous membranes moist. Bruising of the tip of the tongue CHEST: Clear to auscultation. No respiratory distress. HEART: Regular rate and rhythm. Normal peripheral pulses. ABDOMEN: Soft, nontender, nondistended. EXTREMITIES: Normal range of motion. No edema. SKIN: Warm, dry, no rash. NEURO: Alert and oriented x3. PSYCH: Normal mood and affect. Course Course Emergency Course: Patient resting comfortably. Labs and imaging reassuring. Appropriate for discharge home. Suspect this was cough related syncope and not a seizure. Vital Signs Vital signs: Vital Signs Temperature 97.8 F 01/23/25 08:03 Pulse Rate 74 01/23/25 08:03 Respiratory Rate 16 01/23/25 08:03 Blood Pressure 139/92 H 01/23/25 08:03 Pulse Oximetry 98 01/23/25 08:03 Oxygen Delivery Room Air 01/23/25 08:03 Temperature 97.8 F 01/23/25 08:03 Pulse Rate 90 01/23/25 08:23 Respiratory Rate 16 01/23/25 08:03 Blood Pressure 127/89 01/23/25 08:23 Pulse Oximetry 98 01/23/25 08:03 Oxygen Delivery Room Air 01/23/25 08:03 Medical Decision Making Vital Signs Vital Signs: Vital Signs Temperature 97.8 F 01/23/25 08:03 Pulse Rate 74 01/23/25 08:03 Respiratory Rate 16 01/23/25 08:03 Blood Pressure 139/92 H 01/23/25 08:03 Pulse Oximetry 98 01/23/25 08:03 Oxygen Delivery Room Air 01/23/25 08:03 Temperature 97.8 F 01/23/25 08:03 Pulse Rate 90 01/23/25 08:23 Respiratory Rate 16 01/23/25 08:03 Blood Pressure 127/89 01/23/25 08:23 Pulse Oximetry 98 01/23/25 08:03 Oxygen Delivery Room Air 01/23/25 08:03 Lab Data 01/23/25 08:21 01/23/25 08:21 Labs: Lab Results 01/23/25 01/23/25 01/23/25 Range/Units 08:21 08:31 08:32 WBC 4.9 (4.5-10.0) K/mm3 RBC 4.67 (4.6-6.20) M/mm3 Hgb 14.3 (14.0-18.0) g/dL Hct 43.3 (42.0-52.0) % MCV 92.7 (80-100) fl MCH 30.6 (26-34) pg MCHC 33.0 (32-36) g/dl RDW 13.5 (11.5-14.5) % Plt Count 213 (150-375) k/mm3 MPV 9.0 (7.4-10.4) fl Immature Gran % (Auto) 0.6 H (0-0.5) % Neut % (Auto) 38.4 L (45.5-73.1) % Lymph % (Auto) 48.3 H (18.3-44.2) % [place] % (Auto) 10.7 H (2.6-8.5) % Eos % (Auto) 1.4 (0-4.4) % Baso % (Auto) 0.6 (0.2-1.2) % Lymph # (Auto) 2.35 (0.9-3.2) K/mm3 [place] # (Auto) 0.5 (0.1-0.6) K/mm3 Eos # (Auto) 0.1 (0-0.3) K/mm3 Baso # (Auto) 0.0 (0.0-0.1) K/mm3 Abs Immat Gran (auto) 0.03 (0.00-0.031) K/mm3 Absolute Neuts (auto) 1.9 (1.3-6.7) K/mm3 Absolute Nucleated RBC 0.000 (0.0-0.012) K/mm3 Nucleated RBC % 0.0 (0.0-0.2) % Sodium 137 (137-145) mmol/L Potassium 3.9 (3.4-5.0) mmol/L Chloride 107 (98-107) mmol/L Carbon Dioxide 23 (22-30) mmol/L Anion Gap 7 (4-12) mmol/L BUN 14 (9-20) mg/dL Creatinine 0.82 (0.7-1.3) mg/dL Estim Creat Clear Calc 102 ml/min Estimated GFR > 60 (59 - ) Glucose 158 H (65-110) mg/dL Calcium 9.0 (8.4-10.2) mg/dL Total Bilirubin 0.7 (0.2-1.3) mg/dL AST 45 (17-59) U/L ALT 44 (6-50) U/L Alkaline Phosphatase 87 (38-126) U/L Total Protein 7.1 (6.3-8.2) g/dL Albumin 4.1 (3.5-5.1) g/dL Urine Color Yellow (Yellow) Urine Appearance Clear (Clear) Urine pH 5.0 (5.0-9.0) Ur Specific Hi Hat 1.025 (1.001-1.035) Urine Protein Negative (Negative) mg/dL Urine Glucose (UA) Negative (Negative) mg/dL Urine Ketones Negative (Negative) mg/dL Ur Blood (Man) Negative (Negative) Urine Nitrate Negative (Negative) Urine Bilirubin Negative (Negative) Urine Urobilinogen 1.0 (<2.0) mg/dL Leukocyte Esterase Rfl Negative (Negative) BRANDYN/UL Urine Opiates Screen Negative (Negative) Urine Methadone Screen Negative (Negative) Ur Barbiturates Screen Negative (Negative) Ur Phencyclidine Scrn Negative (Negative) Ur Amphetamine Screen Negative (Negative) U Benzodiazepines Scrn Negative (Negative) Urine Cocaine Screen Negative (Negative) U Cannabinoids Screen Positive A (Negative) Ethyl Alcohol < 10 (<10) mg/dL Imaging Data Radiologist's impression: ITS Impressions Chest X-Ray 01/23/25 09:11 IMPRESSION: 1: NO ACUTE CARDIOPULMONARY DISEASE. Head CT 01/23/25 09:16 IMPRESSION: 1. Chronic left frontal lobe infarct. No acute intracranial process. ECG Data EKG #1: ECG completion date: 01/23/25 ECG completion time: 10:04 EKG Interpretation: normal rate (71), sinus rhythm, normal QRS, normal QT and NL axis Discharge Plan Discharge Clinical Impression: Cough syncope, Contusion of tongue Patient Disposition: Home Condition: Stable Instructions: Syncope (ED) Additional Instructions: Please return to the emergency department if you develop severe and persistent chest pain, difficulty breathing, dizziness, leg swelling or if you are coughing up blood as these can be signs of a medical emergency. Please call your doctor for a follow up appointment to determine the need for further testing. Patient Language: Vietnamese Prescriptions: No Action atorvastatin 40 mg tablet 40 mg PO DAILY clopidogrel 75 mg tablet 75 mg PO DAILY meclizine 25 mg Tablet 25 mg PO BID PRN (Reason: Dizziness) Qty: 60 0RF cyclobenzaprine 10 mg tablet 10 mg PO TID PRN (Reason: muscle spasm) Qty: 14 0RF lidocaine 5 % adhesive patch,medicated 1 patch topical DAILY Qty: 15 0RF Rx Instructions: leave on most painful area for up to 12 hrs. do not use more than 1 patch in a 24-hour period. prednisone 20 mg tablet 20 mg PO DAILY Qty: 5 0RF Follow-up/Referrals: Atilio,Kaycee Duarte MD [Primary Care Provider] - 1 Week Stand Alone Forms: Work/School Release IP
[2025-01-23 08:30] LABS: Basophils Percent Auto 0.6 % (0.2-1.2); Eosinophils Absolute Auto 0.1 K/mm3 (0-0.3); Eosinophils Percent Auto 1.4 % (0-4.4); Hematocrit 43.3 % (42.0-52.0); Hemoglobin 14.3 g/dL (14.0-18.0); Immature Granulocyte Absolute 0.03 K/mm3 (0.00-0.031); Immature Granulocyte Percent A 0.6 % (0-0.5); Lymphocytes Absolute Auto 2.35 K/mm3 (0.9-3.2); Lymphocytes Percent Auto 48.3 % (18.3-44.2); Mean Corpuscular Hemoglobin 30.6 pg (26-34); Mean Corpuscular Volume 92.7 fl (80-100); Monocytes Absolute Auto 0.5 K/mm3 (0.1-0.6); Monocytes Percent Auto 10.7 % (2.6-8.5); Neutrophils Absolute Auto 1.9 K/mm3 (1.3-6.7); Neutrophils Percent Auto 38.4 % (45.5-73.1); Platelet Count Result 213 k/mm3 (150-375); Red Blood Count 4.67 M/mm3 (4.6-6.20); Red Cell Distribution Width 13.5 % (11.5-14.5); White Blood Count 4.9 K/mm3 (4.5-10.0)
[2025-01-23] MEDS: SODIUM CHLORIDE 0.9% IV 1,000 ML 999 ML IV CONT (08:32)
[2025-01-23 08:40] LABS: Add Urine Microscopic? NO; Appearance Urine Clear (Clear); Bilirubin Urine Negative (Negative); Blood Urine Negative (Negative); Color Urine Yellow (Yellow); Glucose Urine UA Negative (Negative); Ketones Urine Negative (Negative); Leukocyte Esterase Ur Negative LEU/UL (Negative); Nitrate Urine Negative (Negative); Protein Urine Negative (Negative); Specific Grav Ur 1.025 (1.001-1.035)
[2025-01-23 08:46] LABS: Alanine Aminotransferase 44 U/L (6-50); Albumin Level 4.1 g/dL (3.5-5.1); Alkaline Phosphatase 87 U/L (38-126); Anion Gap 7 mmol/L (4-12); Aspartate Amino Transferase 45 U/L (17-59); Bilirubin,Total 0.7 mg/dL (0.2-1.3); Blood Urea Nitrogen 14 mg/dL (9-20); Carbon Dioxide 23 mmol/L (22-30); Chloride 107 mmol/L (98-107); Estimated CRCL calculation 102 ml/min; Estimated Glomerular Filt Rate > 60; Glucose 158 mg/dL (65-110); Potassium 3.9 mmol/L (3.4-5.0); Sodium 137 mmol/L (137-145); Total Protein 7.1 g/dL (6.3-8.2)
[2025-01-23 08:58] LABS: Ethanol < 10 mg/dL (<10)
--- OUTSIDE RECORDS SUMMARY | 2025-01-23 09:02 | XMS_ITS | Clinical Summary ---
Author Organization [facility] Address [address] [place] [address] Care Team Providers Care Rn Bsn Name Role Phone Kay Alfred MD Unavailable [phone] Kaycee Trimble MD Primary Care Provider [phone] Source Comments [facility],non-owned Affiliates and Associated Physician Practices is amultiple site organization consisting of ambulatory clinics and hospital sitesin [place], [place], [place] and [place]. This disclosure is being madepursuant to the Care Everywhere program and may not contain all information available regarding this patient. Last updated 18.[facility] [employer] Allergies No known active allergies Medications * Be aware that medications may not be up to date on this document. Alwaysverify current medications with the patient. 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 Gender Identity Not on file Sexual Orientation [...] - Urology [address] [place] [address] Marlon Byrd MD [address] [place] [address] Health Maintenance Due Date Last Done Comments [...] this topic Medical Devices Implanted Type Area Gang Drill Operator Device Identifier Shelf Expiration Date Model / Serial / Lot Stent Uret 6fr 28cm Pgtl Crv Tpr Tip Implanted:Qty: 1 on 08/29/2018 by Marlon Byrd MD at [facility] Right: [employer] 02/26/2021 [id number] / / [id number] Procedures Procedure Name Priority Date/Time Associated Diagnosis Comments HIV-1 HIV-2 ANTIGEN/ANTIBODY Routine 09/16/2016 2:50 PM MANAGER DRUG from Last 3 Months or Most Recently Relevant to Health Maintenance Results * HIV-1 HIV-2 ANTIGEN/ANTIBODY (09/16/2016 2:50 PM MANAGER DRUG) HIV Antigen/Antibod y 1 & 2 Non-reacti ve Non-react miriam [facility] Comment: Neither HIV-1 p24 Antigen nor HIV-1/HIV-2 Antibodies are detected. Blood specimen (specimen) BLOOD SPECIMEN / Unknown 09/16/2016 2:50 PM MANAGER DRUG 09/16/2016 3:14 PM MANAGER DRUG us Dc Snow MD LAB - HEMATOLOGY ORDERABLES Marija richard Result [address] [phone] from Last 3 Months or Most Recently Relevant to Health Maintenance Insurance [facility] [employer] [facility] Advance Directives * Full Code (Latest Code Status on File) Date Activated Date Inactivated Comments 08/29/2018 11:45 AM 08/29/2018 7:14 PM Care Teams Rn Bsn Relationship Specialty Start Date End Date Kaycee Trimble MD [address] [place] [address] PCP - General 01/29/19 Kay Alfred MD Neurologist Neurology 12/24/17
--- OUTSIDE RECORDS SUMMARY | 2025-01-23 09:02 | XMS_ITS | Encounter Summary ---
Author Organization [facility] Address [address] [place] [address] Care Team Providers Care Oracle Analyst Name Role Phone Kay Alfred MD Unavailable [phone] [facility] Primary Care Provider Kaycee Trimble MD Primary Care Provider [phone] Adry Quinn APRN-VERIFIER OPERATOR Unavailable [phone] Encounter Details Date Type Department Care Team (Late st Contact Info) Description 08/30/2018 Telephone [facility] [address] [place] [address] Marlon Byrd MD [address] [place] [address] Social History Tobacco Use Types Packs/Day Years Used Date Smoking Tobacco: Former Cigarettes 0.5 10 Smokeless Tobacco: Never Comments:quit 20 years ago Alcohol Use Standard Drinks/Week Comments Yes 6 (1 standard drink = 0.6 oz pur e alcohol) shot evry now and then Sex and Gender Information Value Date Recorded Sex Assigned at Not on file 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 Given #5 tabs yesterday. will come by to crab picker ETCHER HELPER documented in this encounter Plan of Treatment Upcoming Encounters Date Type Department Care Team (Late st Contact Info) Description 06/14/2025 1:00 PM CDT Procedure visit [facility] - Urology [address] [place] [address] Marlon Byrd MD [address] [place] [address] documented as of this encounter Visit Diagnoses Not on filedocumented in this encounter Care Teams Oracle Analyst Relationship Specialty Start Date End Date [facility] [address] [place] [address] PCP - General 03/16/18 01/28/19 Kaycee Trimble MD [address] [place] [id number] PCP - General 01/29/19 Adry Quinn APRN-VERIFIER OPERATOR [address] [place] [phone] PCP - Attributed-Lindsay Medicaid [facility] 04/15/21 01/26/23 Kay Alfred MD Neurologist Neurology 12/24/17 documented as of this encounter
[2025-01-23 09:16] LABS: Amphetamine Screen Urine Negative (Negative); Barbiturate Screen Urine Negative (Negative); Benzodiazepines Screen Urine Negative (Negative); Cannabinoid Screen Urine Positive (Negative); Cocaine Screen Urine Negative (Negative); Methadone Screen Urine Negative (Negative); Opiate Screen Urine Negative (Negative); Phencyclidine Screen Urine Negative (Negative)
== END 2025-01-23 10:27 | disposition home or self-care (01) ==
PROVIDERS: Emergency Provider Emergency Medicine; PCP Internal Medicine Gastroenterology
DX: R55 Syncope and collapse (principal); R05.4 Cough syncope; S00.532A Contusion of oral cavity, initial encounter; E78.5 Hyperlipidemia, unspecified; Z86.73 Personal history of transient ischemic attack (TIA), and cerebral infarction without residual deficits; Z79.02 Long term (current) use of antithrombotics/antiplatelets; Z79.899 Other long term (current) drug therapy; X58.XXXA Exposure to other specified factors, initial encounter
CPT/HCPCS: 36415; 70450; 71046; 80053; 80307; 81003; 82077; 85025; 93005; 96360; 99284; J7030